=== PATIENT | male | born 1955 | race Caucasian/White ===

== ENCOUNTER 2017-07-20 09:55 | Inpatient (IN) | payer OTHER ==
[~2017-07-20] VITALS: Ht 182.9 cm; Wt 90.7 kg
[2017-07-20] MEDS ORDERED: oxyCODONE HCL 10 MG TAB.ER.12H PO ONE ×2 (10:00→10:17)
[2017-07-20] MEDS ORDERED: NACL 0.9% 1,000 ML IV ONE (10:00)
[2017-07-20] MEDS ORDERED: CEFAZOLIN 2 GM IVPB PREMIX 50 ML IV ONE (10:00)
[2017-07-20] MEDS ORDERED: ACETAMINOPHEN 500 MG TABLET PO ONE (10:00)
[2017-07-20] MEDS ORDERED: GABAPENTIN 300 MG CAPSULE PO ONE (10:00)
[2017-07-20] MEDS ORDERED: TRANEXAMIC ACID 650 MG TABLET PO ONE (10:00)
[2017-07-20] MEDS ORDERED: CELECOXIB 200 MG CAPSULE PO ONE (10:00)
[2017-07-20] MEDS ORDERED: WATER FOR IRRIGATION,STERILE 1,000 ML IRRIG.SOLN IR ONE (10:20)
[2017-07-20] MEDS ORDERED: ROPIVACAINE 40 MG/20 ML AMP EP ONE (10:20)
[2017-07-20] MEDS ORDERED: MIDAZOLAM HCL 5 MG/ML VIAL (VERSED) IV ONE (10:20)
[2017-07-20] MEDS ORDERED: PROPOFOL 200MG/ 20ML VIAL (DIPRIVAN) IV ONE (10:20)
[2017-07-20] MEDS ORDERED: ROPIVACAINE HCL/PF 5 MG/ML 0.5% 30 ML VIAL INJ ONE (10:20)
[2017-07-20] MEDS ORDERED: BUPIVACAINE /PF 0.75% 10 ML VIAL INJ ONE (10:20)
[2017-07-20] MEDS ORDERED: NS 1000 ML BAG IV ONE (10:20)
[2017-07-20] MEDS ORDERED: SEVOFLURANE 15 MIN GAS INH ONE (10:20)
[2017-07-20] MEDS ORDERED: EPINEPHrine 1 MG/ML AMP IV ONE (10:20)
[2017-07-20] MEDS ORDERED: KETOROLAC TROMETHAMINE 30 MG VIAL IVP ONE (10:20)
[2017-07-20] MEDS ORDERED: MORPHINE SULFATE 10MG/10ML PF AMP EP ONE (10:20)
[2017-07-20] MEDS ORDERED: TRANEXAMIC ACID 1,000 MG/10 ML VIAL IV ONE (10:20)
[2017-07-20] MEDS ORDERED: METOCLOPRAMIDE HCL 10 MG/2 ML VIAL IVP ONE (10:20)
[2017-07-20] MEDS ORDERED: fentaNYL CITRATE 250 MCG/5 ML AMP IV ONE (10:20)
[2017-07-20] MEDS ORDERED: POLYMYXIN 500,000/BACIT.10,000 UNITS in NS IRR 1 L IR ONE ×2 (11:05→12:00)
[2017-07-20] MEDS ORDERED: TRAM50TA92 PO (12:35)
[2017-07-20] MEDS ORDERED: AMIT10TA6 PO (12:35)
[2017-07-20] MEDS ORDERED: DONE5TAB3 PO (12:35)
[2017-07-20] MEDS ORDERED: DICL75TA5 PO (12:35)
[2017-07-20] MEDS ORDERED: BENA1TAB19 PO (12:35)
[2017-07-20] MEDS ORDERED: SSNOVOLOG SUBCUT (12:35)
[2017-07-20] MEDS ORDERED: LIP10 PO (12:35)
[2017-07-20] MEDS ORDERED: GABA800T PO (12:35)
[2017-07-20] MEDS ORDERED: OXYC-133 PO (12:35)
[2017-07-20] MEDS ORDERED: ASPI-1063 PO (12:35)
[2017-07-20] MEDS ORDERED: LR 1,000 ML IV ONE (13:12)
[2017-07-20] MEDS ORDERED: KETOROLAC TROMETHAMINE 30 MG VIAL IM PRN (13:15)
[2017-07-20] MEDS ORDERED: NALOXONE HCL 0.4 MG/ML AMP (NARCAN) IVP PRN (13:15)
[2017-07-20] MEDS ORDERED: ONDANSETRON HCL 4 MG/2 ML VIAL IVP PRN ×3 (13:15→14:15)
[2017-07-20] MEDS ORDERED: DIPHENHYDRAMINE INJ 50 MG/ML VIAL IVP PRN (13:15)
[2017-07-20] MEDS ORDERED: ePHEDrine sulfate 50 MG/ML VIAL IVP PRN (13:15)
[2017-07-20] MEDS ORDERED: NALBUPHINE HCL 10 MG/ML AMP IVP PRN (13:15)
[2017-07-20] MEDS ORDERED: fentaNYL CITRATE/PF 100 MCG/2 ML AMP IVP PRN (13:15)
[2017-07-20] MEDS ORDERED: ROPIVACAINE 0.2% 550 ML INJ SCH (14:02)
[2017-07-20] MEDS ORDERED: PROMETHAZINE HCL 25 MG/ML AMP IVP PRN (14:15)
[2017-07-20] MEDS ORDERED: DIPHENHYDRAMINE HCL 25 MG CAPSULE PO PRN (14:15)
[2017-07-20] MEDS ORDERED: KETOROLAC TROMETHAMINE 15 MG VIAL IVP PRN (14:15)
[2017-07-20 15:30] VITALS: BP_SYST 145
[2017-07-20 15:57] VITALS: BP_SYST 145
[2017-07-20 16:00] VITALS: BP_SYST 145
[2017-07-20] MEDS: GABAPENTIN 400 MG CAPSULE PO SCH ×2 (17:00→21:20)
[2017-07-20] MEDS: ACETAMINOPHEN 500 MG TABLET PO SCH ×2 (17:02→21:23)
[2017-07-20] MEDS: CEFAZOLIN 1 GM IVPB PREMIX 50 ML IV SCH (17:02)
[2017-07-20] MEDS: LR 1,000 ML IV SCH (17:10)
[2017-07-20 20:00] VITALS: BP_SYST 154
[2017-07-20] MEDS ORDERED: SENNOSIDES 8.6 MG TABLET PO PRN (21:00)
[2017-07-20] MEDS: DONEPEZIL HCL 5 MG TABLET (ARICEPT) PO SCH (21:20)
[2017-07-20] MEDS: GABAPENTIN 300 MG CAPSULE PO SCH (21:20)
[2017-07-20] MEDS: CELECOXIB 200 MG CAPSULE PO SCH (21:21)
[2017-07-20] MEDS: AMITRIPTYLINE HCL 10 MG TABLET (ELAVIL) PO SCH (21:21)
[2017-07-21 00:36] VITALS: BP_SYST 128
[2017-07-21] MEDS: CEFAZOLIN 1 GM IVPB PREMIX 50 ML IV SCH ×2 (01:16→09:22)
[2017-07-21] MEDS: LR 1,000 ML IV SCH ×3 (04:25→20:02)
[2017-07-21 05:19] LABS: BASOPHILS % (AUTO) 0.3 % (0.0-2.0); EOSINOPHILS # (AUTO) 0.1 K/uL (0.0-0.4); EOSINOPHILS % (AUTO) 1.2 % (0.0-4.0); HEMATOCRIT 29.2 % (36-54); HEMOGLOBIN 9.5 g/dL (14.0-18.0); LYMPHOCYTES % (AUTO) 10.1 % (20.5-51.5); MEAN CORPUSCULAR HEMOGLOBIN 29 pg (27-31); MEAN CORPUSCULAR HGB CONC 33 % (32-36); MEAN CORPUSCULAR VOLUME 88 fL (79.0-98.0); MONOCYTES # (AUTO) 0.8 K/uL (0.0-1.0); MONOCYTES % (AUTO) 8.2 % (1.7-9.3); NEUTROPHILS % (AUTO) 80.2 % (40.0-70.0); PLATELET COUNT (AUTO) 313 K/uL (130-430); RED CELL DISTRIBUTION WIDTH 12.5 % (9.0-15.0); WHITE BLOOD COUNT (AUTO) 9.9 K/uL (4.8-10.8)
[2017-07-21 05:22] LABS: CALCIUM 7.8 mg/dL (8.4-11.0); CREATININE 0.99 mg/dL (0.55-1.30); POTASSIUM 3.9 mmol/L (3.5-5.1)
[2017-07-21] MEDS: oxyCODONE HCL 5 MG TABLET PO PRN ×2 (08:19→13:30)
[2017-07-21] MEDS: GABAPENTIN 400 MG CAPSULE PO SCH ×3 (09:22→21:54)
[2017-07-21] MEDS: CELECOXIB 200 MG CAPSULE PO SCH ×2 (09:22→21:53)
[2017-07-21] MEDS: RIVAROXABAN 10 MG TABLET PO SCH (09:23)
[2017-07-21] MEDS: ATORVASTATIN 10 MG TABLET PO SCH (09:23)
[2017-07-21 09:48] VITALS: BP_SYST 146
[2017-07-21 11:46] VITALS: BP_SYST 160
[2017-07-21] MEDS: ACETAMINOPHEN 500 MG TABLET PO SCH ×3 (14:30→21:55)
[2017-07-21 16:32] VITALS: BP_SYST 162
[2017-07-21] MEDS: MORPHINE SULFATE 10 MG/ML VIAL IVP PRN ×2 (16:54→21:54)
[2017-07-21 20:00] VITALS: BP_SYST 148
[2017-07-21] MEDS: GABAPENTIN 300 MG CAPSULE PO SCH (21:52)
[2017-07-21] MEDS: DONEPEZIL HCL 5 MG TABLET (ARICEPT) PO SCH (21:52)
[2017-07-21] MEDS: AMITRIPTYLINE HCL 10 MG TABLET (ELAVIL) PO SCH (21:53)
[2017-07-22 00:16] VITALS: BP_SYST 157
[2017-07-22] MEDS ORDERED: COMMUNICATION ORDER XX ONE (00:30)
[2017-07-22] MEDS ORDERED: ONDANSETRON HCL 4 MG/2 ML VIAL IVP PRN (00:30)
[2017-07-22] MEDS: MORPHINE SULFATE 10 MG/ML VIAL IVP PRN (03:07)
[2017-07-22] MEDS: oxyCODONE HCL 5 MG TABLET PO PRN ×3 (05:46→13:40)
[2017-07-22] MEDS: LR 1,000 ML IV SCH (06:02)
[2017-07-22 06:50] LABS: BASOPHILS % (AUTO) 0.1 % (0.0-2.0); EOSINOPHILS % (AUTO) 0.2 % (0.0-4.0); HEMATOCRIT 28.9 % (36-54); HEMOGLOBIN 9.7 g/dL (14.0-18.0); LYMPHOCYTES # (AUTO) 0.7 K/uL (1.0-5.5); LYMPHOCYTES % (AUTO) 6.7 % (20.5-51.5); MEAN CORPUSCULAR HEMOGLOBIN 29 pg (27-31); MEAN CORPUSCULAR HGB CONC 33 % (32-36); MEAN CORPUSCULAR VOLUME 88 fL (79.0-98.0); MONOCYTES # (AUTO) 1.1 K/uL (0.0-1.0); NEUTROPHILS # (AUTO) 9.2 K/uL (1.8-7.7); PLATELET COUNT (AUTO) 304 K/uL (130-430); RED CELL DISTRIBUTION WIDTH 12.4 % (9.0-15.0)
[2017-07-22 07:22] LABS: CALCIUM 8.8 mg/dL (8.4-11.0); CREATININE 0.99 mg/dL (0.55-1.30); POTASSIUM 4.7 mmol/L (3.5-5.1)
[2017-07-22] MEDS ORDERED: LR 500 ML IV ONE (08:00)
[2017-07-22 08:06] VITALS: BP_SYST 148
[2017-07-22] MEDS: CELECOXIB 200 MG CAPSULE PO SCH (08:27)
[2017-07-22] MEDS: ACETAMINOPHEN 500 MG TABLET PO SCH ×2 (08:27→15:00)
[2017-07-22] MEDS: GABAPENTIN 400 MG CAPSULE PO SCH ×2 (08:27→15:00)
[2017-07-22] MEDS: ATORVASTATIN 10 MG TABLET PO SCH (08:27)
[2017-07-22] MEDS: RIVAROXABAN 10 MG TABLET PO SCH (09:29)
[2017-07-22 11:20] VITALS: BP_SYST 152
[2017-07-22 12:00] VITALS: BP_SYST 159
[2017-07-22] MEDS ORDERED: RIVA10TA (12:41)
[2017-07-22] MEDS ORDERED: HYDR-3924 PO (12:43)
== END 2017-07-22 15:10 | disposition home health service (06) | DRG 470 ==
LOC: SMU 09:55 → STU 16:36
PROVIDERS: ADMIT Orthopaedic Surgery; ATTEND Orthopaedic Surgery
PROC: 0SRC0J9 Replacement of Right Knee Joint with Synthetic Substitute, Cemented, Open Approach (ICD-10-PCS; principal; 2017-07-20 12:00)
DX: M17.11 Unilateral primary osteoarthritis, right knee (principal); E10.42 Type 1 diabetes mellitus with diabetic polyneuropathy; I10 Essential (primary) hypertension; F32.9 Major depressive disorder, single episode, unspecified; G89.29 Other chronic pain; M25.761 Osteophyte, right knee; M54.5 Low back pain; Z96.41 Presence of insulin pump (external) (internal); Z88.1 Allergy status to other antibiotic agents; Z79.4 Long term (current) use of insulin; Z79.899 Other long term (current) drug therapy; Z87.891 Personal history of nicotine dependence
CPT/HCPCS: 36415; 80048; 85025; 87081; 88305; 88311; 94760; 97039; 97110-GP; 97116-GP; 97530-GP; C1713; C1776; J0171; J0690; J1885; J2250; J2270; J2274; J2405; J2704; J2765; J2795; J3010; J3490; J7030; J7120; Q0163

== ENCOUNTER 2017-11-29 07:08 | Day surgery (SDC) | payer OTHER ==
[~2017-11-29] VITALS: Ht 182.9 cm; Wt 90.7 kg
[~2017-11-29 07:08] MED LIST: AMIT10TA6 PO; BENA1TAB19 PO; DONE5TAB3 PO; GABA800T PO; HYDR-3924 PO; LIP10 PO; RIVA10TA; SSNOVOLOG SUBCUT
[2017-11-29] MEDS ORDERED: CEFAZOLIN SOD 2 GM in D5W 50 ML IV ONE (07:45)
[2017-11-29] MEDS ORDERED: MIDAZOLAM HCL 5 MG/5 ML VIAL IVP ONE (09:35)
[2017-11-29] MEDS ORDERED: NS 1000 ML IV.SOLN IV ONE (09:35)
[2017-11-29] MEDS ORDERED: BUPIVACAINE LIPOSOME/PF 266 MG/20 ML VIAL INFIL ONE (09:35)
[2017-11-29] MEDS ORDERED: BUPIVACAINE /PF 0.25% 30 ML VIAL INJ ONE (09:35)
[2017-11-29] MEDS ORDERED: BUPIVACAINE /PF 0.75% 10 ML VIAL INJ ONE (09:35)
[2017-11-29] MEDS ORDERED: LR 1,000 ML IV.SOLN IV ONE (09:35)
[2017-11-29] MEDS ORDERED: PROPOFOL 200MG/ 20ML VIAL (DIPRIVAN) IV ONE (09:35)
[2017-11-29] MEDS ORDERED: POLYMYXIN 500,000/BACIT.10,000 UNITS in NS IRR 1 L IR ONE (09:39)
[2017-11-29] MEDS ORDERED: ONDANSETRON HCL 4 MG/2 ML VIAL IVP PRN (10:45)
[2017-11-29] MEDS ORDERED: fentaNYL CITRATE/PF 100 MCG/2 ML AMP IVP PRN ×2 (10:45)
[2017-11-29] MEDS ORDERED: NACL 0.9% 1,000 ML IV SCH (10:46)
[2017-11-29] MEDS ORDERED: DIPHENHYDRAMINE HCL 25 MG CAPSULE PO PRN (11:00)
[2017-11-29] MEDS ORDERED: HYDROcodone/ACETAMIN 5-325 MG TAB (NORCO/ VICODIN) PO PRN (11:00)
[2017-11-29] MEDS ORDERED: MORPHINE 4 MG/ML INJ. SYRINGE IVP PRN (11:00)
[2017-11-29] MEDS ORDERED: ACETAMINOPHEN 325 MG TABLET PO PRN (11:00)
[2017-11-29 15:54] VITALS: BP_SYST 143
== END 2017-11-29 14:30 | disposition home or self-care (01) ==
LOC: SDS 07:08 → SMU 07:08 → SDS 14:30
PROVIDERS: ATTEND Orthopaedic Surgery
DX: S76.111A Strain of right quadriceps muscle, fascia and tendon, initial encounter (principal); X58.XXXA Exposure to other specified factors, initial encounter; Y93.9 Activity, unspecified; Y92.89 Other specified places as the place of occurrence of the external cause; Y99.9 Unspecified external cause status; Z88.8 Allergy status to other drugs, medicaments and biological substances; Z79.899 Other long term (current) drug therapy; Z87.891 Personal history of nicotine dependence; E11.22 Type 2 diabetes mellitus with diabetic chronic kidney disease; N18.9 Chronic kidney disease, unspecified; Z79.4 Long term (current) use of insulin; M19.90 Unspecified osteoarthritis, unspecified site; I12.9 Hypertensive chronic kidney disease with stage 1 through stage 4 chronic kidney disease, or unspecified chronic kidney disease
CPT/HCPCS: 27385; C9290; J0690; J2250; J2704; J3490 ×2; J7030; J7060; J7120

== ENCOUNTER 2023-01-19 08:15 | Day surgery (SDC) | payer OTHER ==
[~2023-01-19] VITALS: Ht 182.9 cm; Wt 94.1 kg
[~2023-01-19 08:15] MED LIST changes: +BUPIVACAINE /PF 0.25% 30 ML VIAL INJ ONE; +DESFLURANE 15 MIN GAS INH ONE; +DEXAMETHASONE SOD PHOSPHATE 4 MG/ML VIAL ONE; -HYDR-3924 PO; +HYDR-4497 PO; +KETOROLAC TROMETHAMINE 30 MG VIAL ONE; +LR 1,000 ML IV.SOLN IV ONE; +MIDAZOLAM HCL 2 MG/2 ML VIAL (VERSED) ONE; +NS IRRIG SOLN 1000 ML IR ONE; +ONDANSETRON HCL 4 MG/2 ML VIAL ONE; +PROPOFOL 200MG/ 20ML VIAL (DIPRIVAN) IV ONE; +ROCURONIUM BROMIDE 10 MG/ML (ZEMURON) ONE; +SUGAMMADEX SODIUM 200 MG/2 ML VIAL IV ONE; +TRANEXAMIC ACID 1,000 MG/10 ML VIAL ONE; +VANCOMYCIN HCL 1000 MG/VIAL IV ONE; +WATER FOR IRRIGATION,STERILE 1,000 ML IRRIG.SOLN IR ONE
[2023-01-19 09:44] VITALS: O2SAT 100
[2023-01-19] MEDS ORDERED: LR 1,000 ML IV.SOLN IV ONE (09:58)
[2023-01-19] MEDS ORDERED: fentaNYL CITRATE/PF 100 MCG/2 ML AMP ONE (09:58)
[2023-01-19] MEDS ORDERED: WATER FOR INJECTION,STERILE 20 ML VIAL IV ONE (09:58)
[2023-01-19] MEDS ORDERED: MIDAZOLAM HCL/PF 2 MG/2 ML SYRINGE ONE (09:58)
[2023-01-19] MEDS ORDERED: BUPIVACAINE /PF 0.25% 30 ML VIAL INJ ONE (09:58)
[2023-01-19] MEDS ORDERED: LIDOCAINE 1% 10 MG/ML, 20 ML MDV ONE (09:58)
[2023-01-19] MEDS ORDERED: NS IRRIG SOLN 1000 ML IR ONE (09:58)
[2023-01-19] MEDS ORDERED: SUGAMMADEX SODIUM 200 MG/2 ML VIAL IV ONE (09:58)
[2023-01-19] MEDS ORDERED: TRANEXAMIC ACID 1,000 MG/10 ML VIAL ONE (09:58)
[2023-01-19] MEDS ORDERED: PROPOFOL 200MG/ 20ML VIAL (DIPRIVAN) IV ONE (09:58)
[2023-01-19] MEDS ORDERED: NS 1000 ML IV.SOLN IV ONE ×2 (09:58)
[2023-01-19] MEDS ORDERED: LR 1,000 ML IV SCH (10:30)
[2023-01-19] MEDS ORDERED: HYDROmorphone 1 MG/ML INJ. CARTRIDGE IVP PRN (10:30)
[2023-01-19 13:17] VITALS: BP_SYST 153; PULSE 51; RESP 18
== END 2023-01-19 12:50 | disposition home or self-care (01) ==
LOC: SDS 08:15 → SMU 08:16 → SDS 12:50
PROVIDERS: ATTEND Podiatrist Primary Podiatric Medicine
DX: E10.621 Type 1 diabetes mellitus with foot ulcer (principal); L89.893 Pressure ulcer of other site, stage 3; I12.9 Hypertensive chronic kidney disease with stage 1 through stage 4 chronic kidney disease, or unspecified chronic kidney disease; E10.22 Type 1 diabetes mellitus with diabetic chronic kidney disease; E10.21 Type 1 diabetes mellitus with diabetic nephropathy; N18.2 Chronic kidney disease, stage 2 (mild); M19.90 Unspecified osteoarthritis, unspecified site; E78.5 Hyperlipidemia, unspecified; Z79.84 Long term (current) use of oral hypoglycemic drugs; Z79.899 Other long term (current) drug therapy; Z88.1 Allergy status to other antibiotic agents
CPT/HCPCS: 15275; 88304; J3490 ×6; J1100; J1885; J3465 ×2; J2405; J2704 ×2; J3370; J7120 ×2; J2001; J3010; J7030; A2004

== ENCOUNTER 2023-02-11 08:00 | Outpatient (CLI) | payer OTHER ==
[~2023-02-11 08:00] MED LIST changes: -BUPIVACAINE /PF 0.25% 30 ML VIAL INJ ONE; -DESFLURANE 15 MIN GAS INH ONE; -DEXAMETHASONE SOD PHOSPHATE 4 MG/ML VIAL ONE; -KETOROLAC TROMETHAMINE 30 MG VIAL ONE; -LR 1,000 ML IV.SOLN IV ONE; -MIDAZOLAM HCL 2 MG/2 ML VIAL (VERSED) ONE; -NS IRRIG SOLN 1000 ML IR ONE; -ONDANSETRON HCL 4 MG/2 ML VIAL ONE; -PROPOFOL 200MG/ 20ML VIAL (DIPRIVAN) IV ONE; -ROCURONIUM BROMIDE 10 MG/ML (ZEMURON) ONE; -SUGAMMADEX SODIUM 200 MG/2 ML VIAL IV ONE; -TRANEXAMIC ACID 1,000 MG/10 ML VIAL ONE; -VANCOMYCIN HCL 1000 MG/VIAL IV ONE; -WATER FOR IRRIGATION,STERILE 1,000 ML IRRIG.SOLN IR ONE
== END 2023-02-11 16:00 | disposition home or self-care (01) ==
LOC: SLB 08:00 → EDSTATUS 02-18 09:30
PROVIDERS: ATTEND Podiatrist Primary Podiatric Medicine
DX: Z01.818 Encounter for other preprocedural examination (principal); E11.621 Type 2 diabetes mellitus with foot ulcer; L89.893 Pressure ulcer of other site, stage 3
CPT/HCPCS: 87081

== ENCOUNTER 2023-03-08 15:10 | Inpatient (IN) | payer OTHER ==
[~2023-03-08] VITALS: Ht 182.9 cm; Wt 90.7 kg
[2023-03-08 15:19] VITALS: BP_SYST 126; PULSE 79; RESP 18; TEMP 98.3; O2SAT 97
[2023-03-08] MEDS ORDERED: NACL 0.9% 1,000 ML IV ONE ×3 (15:30→17:00)
[2023-03-08 16:05] LABS: BASOPHILS # (AUTO) 0.1 K/uL (0.0-0.2); BASOPHILS % (AUTO) 1.3 % (0.0-2.0); EOSINOPHILS # (AUTO) 0.4 K/uL (0.0-0.4); EOSINOPHILS % (AUTO) 4.6 % (0.0-4.0); HEMATOCRIT 28.7 % (36-54); HEMOGLOBIN 9.3 g/dL (14.0-18.0); LYMPHOCYTES % (AUTO) 11.7 % (20.5-51.5); MEAN CORPUSCULAR HEMOGLOBIN 27 pg (27-31); MEAN CORPUSCULAR HGB CONC 33 % (32-36); MEAN CORPUSCULAR VOLUME 84 fL (79.0-98.0); MONOCYTES # (AUTO) 0.9 K/uL (0.0-1.0); MONOCYTES % (AUTO) 10.6 % (1.7-9.3); NEUTROPHILS % (AUTO) 71.8 % (40.0-70.0); PLATELET COUNT (AUTO) 286 K/uL (130-430); RED BLOOD CELL COUNT(AUTO) 3.41 MIL/uL (4.2-6.2); RED CELL DISTRIBUTION WIDTH 16.6 % (9.0-15.0); WHITE BLOOD COUNT (AUTO) 8.4 K/uL (4.8-10.8)
[2023-03-08 16:22] LABS: ACETONE, SERUM NEGATIVE (NEGATIVE)
[2023-03-08 16:23] LABS: INR 1.1 (0.80-1.20); PROTHROMBIN TIME 11.3 SECS (9.5-12.5)
[2023-03-08 16:24] LABS: ALANINE AMINOTRANSFERASE 17 U/L (12-78); ALBUMIN 2.8 g/dL (3.4-4.8); ANION GAP 15 (5-15); ASPARTATE AMINOTRANSFERASE 18 U/L (10-37); CARBON DIOXIDE 18 mmol/L (23-29); CHLORIDE 95 mmol/L (98-107); CREATININE 6.21 mg/dL (0.55-1.30); GFR AFRICAN AMERICAN 12 mL/min (>90); POTASSIUM 5.5 mmol/L (3.5-5.1); SODIUM SERUM 128 mmol/L (136-145); TOTAL BILIRUBIN 0.4 mg/dL (0.0-1.0); UREA NITROGEN, BLOOD 67 mg/dL (8-21)
[2023-03-08 16:28] LABS: GLUCOSE 459 mg/dL (74-106)
[2023-03-08] MEDS ORDERED: INSULIN REGULAR, HUMAN 100 UNITS/ML, 3 ML VIAL IV ONE (16:45)
[2023-03-08] MEDS ORDERED: CLINDAMYCIN 900 mg/50mL D5W 50 ML IV ONE (17:00)
[2023-03-08] MEDS ORDERED: CIPROFLOXACIN LACT 400 MG/D5W 200 ML IV SCH (17:00)
[2023-03-08] MEDS ORDERED: INSULIN REGULAR, HUMAN 10 UNITS/0.1 ML, 3 ML VIAL ONE (17:01)
[2023-03-08] MEDS ORDERED: INSULIN REGULAR, HUMAN 100 UNITS in NS 99 ML IV ONE ×2 (17:15)
[2023-03-08] MEDS ORDERED: CIPROFLOXACIN LACT 400 MG/D5W 200 ML IV ONE (18:00)
[2023-03-08] MEDS ORDERED: CLINDAMYCIN 300 MG/50 ML D5W 50 ML IV SCH (19:00)
[2023-03-08] MEDS ORDERED: LORazepam 2 MG/ML VIAL IVP PRN (20:15)
[2023-03-08] MEDS ORDERED: NALOXONE HCL 0.4 MG/ML AMP (NARCAN) IVP PRN ×2 (20:15)
[2023-03-08] MEDS ORDERED: ONDANSETRON HCL 4 MG/2 ML VIAL IVP PRN (20:15)
[2023-03-08] MEDS ORDERED: ACETAMINOPHEN 325 MG TABLET PO PRN (20:30)
[2023-03-08 21:00] VITALS: BP_SYST 139; PULSE 74; RESP 20; TEMP 98.6; O2SAT 95
[2023-03-08] MEDS: AMITRIPTYLINE HCL 10 MG TABLET (ELAVIL) PO SCH (21:00)
[2023-03-08] MEDS: GABAPENTIN 400 MG CAPSULE PO SCH (21:00)
[2023-03-08] MEDS: ATORVASTATIN 10 MG TABLET PO SCH (21:00)
[2023-03-08] MEDS: DONEPEZIL HCL 5 MG TABLET (ARICEPT) PO SCH (21:00)
[2023-03-08] MEDS ORDERED: DEXTROSE 50% JECT 50 ML DISP.SYRIN IVP PRN (21:15)
[2023-03-08] MEDS ORDERED: INSULIN REGULAR, HUMAN 100 UNITS in NS 99 ML IV PRN ×2 (21:15)
[2023-03-08] MEDS: NACL 0.9% 1,000 ML IV SCH (21:44)
[2023-03-08 22:00] VITALS: BP_SYST 143; PULSE 72; RESP 22; O2SAT 96
[2023-03-08 22:25] VITALS: BP_SYST 140; RESP 22; TEMP 99.6
[2023-03-08 23:00] VITALS: BP_SYST 140; PULSE 74; RESP 20; O2SAT 95
[2023-03-09] VITALS (23 sets, daily range): BP systolic 114–169; PULSE 63–93; RESP 12–22; TEMP 97.8–98.6; O2SAT 96–98
[2023-03-09 00:43] LABS: CALCIUM 7.5 mg/dL (8.4-11.0); CREATININE 5.82 mg/dL (0.55-1.30); POTASSIUM 5.3 mmol/L (3.5-5.1)
[2023-03-09] MEDS: NACL 0.9% 1,000 ML IV SCH ×2 (03:18→13:18)
[2023-03-09 05:45] LABS: BILIRUBIN,URINE NEGATIVE (NEGATIVE); CLARITY/URINE Clear (CLEAR); COLOR,URINE YELLOW (YELLOW); GLUCOSE,URINE 1+ (NEGATIVE); KETONES,URINE NEGATIVE (NEGATIVE); LEUKOCYTE ESTERASE ,URINE NEGATIVE (NEGATIVE); NITRITE, URINE NEGATIVE (NEGATIVE); PH,URINE 6.5 (5.0-8.0); PROTEIN URINE 2+ (NEGATIVE); UROBILINOGEN,URINE 0.2 (0.2-1.0)
[2023-03-09 05:54] LABS: BLOOD, URINE TRACE (NEGATIVE)
[2023-03-09 05:55] LABS: BACTERIA,URINE None Seen /HPF (None Seen); WBC,URINE 0-3 /HPF (0-3)
[2023-03-09] MEDS ORDERED: CIPROFLOXACIN LACT 400 MG/D5W 200 ML IV SCH (06:00)
[2023-03-09 06:56] LABS: CALCIUM 7.5 mg/dL (8.4-11.0); CREATININE 5.91 mg/dL (0.55-1.30); PHOSPHORUS 6.7 mg/dL (2.7-4.5); POTASSIUM 5.4 mmol/L (3.5-5.1)
[2023-03-09 07:29] LABS: BASOPHILS # (AUTO) 0.1 K/uL (0.0-0.2); BASOPHILS % (AUTO) 1.2 % (0.0-2.0); EOSINOPHILS % (AUTO) 8.9 % (0.0-4.0); HEMATOCRIT 28.1 % (36-54); HEMOGLOBIN 9.1 g/dL (14.0-18.0); LYMPHOCYTES # (AUTO) 1.3 K/uL (1.0-5.5); LYMPHOCYTES % (AUTO) 12.4 % (20.5-51.5); MEAN CORPUSCULAR HEMOGLOBIN 27 pg (27-31); MEAN CORPUSCULAR HGB CONC 33 % (32-36); MEAN CORPUSCULAR VOLUME 83 fL (79.0-98.0); MONOCYTES # (AUTO) 1.1 K/uL (0.0-1.0); MONOCYTES % (AUTO) 10.3 % (1.7-9.3); NEUTROPHILS # (AUTO) 7.3 K/uL (1.8-7.7); NEUTROPHILS % (AUTO) 67.2 % (40.0-70.0); PLATELET COUNT (AUTO) 277 K/uL (130-430); RED BLOOD CELL COUNT(AUTO) 3.37 MIL/uL (4.2-6.2); RED CELL DISTRIBUTION WIDTH 16.3 % (9.0-15.0); WHITE BLOOD COUNT (AUTO) 10.8 K/uL (4.8-10.8)
[2023-03-09] MEDS: RIVAROXABAN 10 MG TABLET PO SCH (09:00)
[2023-03-09] MEDS ORDERED: lisinopriL 20 MG TABLET PO SCH (09:00)
[2023-03-09] MEDS: HYDROCHLOROTHIAZIDE 25 MG TABLET (HCTZ) PO SCH (09:00)
[2023-03-09] MEDS ORDERED: BENAZEPRIL HCL 20 MG TABLET (LOTENSIN) PO SCH (09:00)
[2023-03-09] MEDS: GABAPENTIN 400 MG CAPSULE PO SCH ×3 (09:00→20:01)
[2023-03-09] MEDS ORDERED: INSULIN GLARGINE 100 UNITS/ML, 10 ML VIAL SUBCUT ONE (10:45)
[2023-03-09] MEDS: CIPROFLOXACIN LACT 400 MG/D5W 200 ML IV SCH ×2 (11:34→22:31)
[2023-03-09 13:13] LABS: CALCIUM 7.4 mg/dL (8.4-11.0); CREATININE 6.19 mg/dL (0.55-1.30); POTASSIUM 5.3 mmol/L (3.5-5.1)
[2023-03-09 16:46] LABS: CALCIUM 7.3 mg/dL (8.4-11.0); CREATININE 6.26 mg/dL (0.55-1.30); PHOSPHORUS 6.9 mg/dL (2.7-4.5); POTASSIUM 5.3 mmol/L (3.5-5.1)
[2023-03-09] MEDS: INSULIN LISPRO SLIDING SCALE 100 UNITS/ML, 3 ML VIAL (humaLOG) SUBCUT PRN (17:50)
[2023-03-09 18:21] LABS: BILIRUBIN,URINE NEGATIVE (NEGATIVE); BLOOD, URINE 1+ (NEGATIVE); CLARITY/URINE Clear (CLEAR); GLUCOSE,URINE Trace (NEGATIVE); KETONES,URINE NEGATIVE (NEGATIVE); LEUKOCYTE ESTERASE ,URINE NEGATIVE (NEGATIVE); NITRITE, URINE NEGATIVE (NEGATIVE); PH,URINE 5.5 (5.0-8.0); PROTEIN URINE 2+ (NEGATIVE); UROBILINOGEN,URINE 0.2 (0.2-1.0)
[2023-03-09 18:22] LABS: COLOR,URINE STRAW (YELLOW)
[2023-03-09 18:28] LABS: BACTERIA,URINE FEW /HPF (None Seen); COARSE GRANULAR CASTS,URINE 0-10 /LPF (None Seen); MUCUS,URINE None Seen /LPF (None Seen); URINE AMORPHOUS URATE 1+ /HPF (None Seen)
[2023-03-09] MEDS: AMITRIPTYLINE HCL 10 MG TABLET (ELAVIL) PO SCH (20:02)
[2023-03-09] MEDS: DONEPEZIL HCL 5 MG TABLET (ARICEPT) PO SCH (20:02)
[2023-03-09] MEDS: ATORVASTATIN 10 MG TABLET PO SCH (20:02)
[2023-03-09] MEDS: INSULIN GLARGINE 100 UNITS/ML, 10 ML VIAL SUBCUT SCH (20:14)
[2023-03-10] VITALS (17 sets, daily range): BP systolic 115–167; PULSE 60–85; RESP 12–20; TEMP 97.9–98.6; O2SAT 95–97
[2023-03-10] MEDS: INSULIN LISPRO SLIDING SCALE 100 UNITS/ML, 3 ML VIAL (humaLOG) SUBCUT PRN ×3 (00:14→21:27)
[2023-03-10 01:30] LABS: CALCIUM 7.4 mg/dL (8.4-11.0); CREATININE 5.99 mg/dL (0.55-1.30); POTASSIUM 4.7 mmol/L (3.5-5.1)
[2023-03-10] MEDS: NACL 0.9% 1,000 ML IV SCH ×3 (02:06→21:11)
[2023-03-10 06:01] LABS: ERYTHROCYTE SEDIMENTATION RATE 19 MM/HR (0-15)
[2023-03-10 06:14] LABS: BASOPHILS # (AUTO) 0.2 K/uL (0.0-0.2); BASOPHILS % (AUTO) 1.9 % (0.0-2.0); EOSINOPHILS # (AUTO) 0.9 K/uL (0.0-0.4); EOSINOPHILS % (AUTO) 10.6 % (0.0-4.0); HEMATOCRIT 28.4 % (36-54); HEMOGLOBIN 9.3 g/dL (14.0-18.0); LYMPHOCYTES # (AUTO) 1.3 K/uL (1.0-5.5); LYMPHOCYTES % (AUTO) 15.3 % (20.5-51.5); MEAN CORPUSCULAR HEMOGLOBIN 27 pg (27-31); MEAN CORPUSCULAR HGB CONC 33 % (32-36); MEAN CORPUSCULAR VOLUME 83 fL (79.0-98.0); MONOCYTES % (AUTO) 11.8 % (1.7-9.3); NEUTROPHILS # (AUTO) 5.2 K/uL (1.8-7.7); NEUTROPHILS % (AUTO) 60.4 % (40.0-70.0); PLATELET COUNT (AUTO) 276 K/uL (130-430); RED BLOOD CELL COUNT(AUTO) 3.45 MIL/uL (4.2-6.2); RED CELL DISTRIBUTION WIDTH 16.4 % (9.0-15.0); WHITE BLOOD COUNT (AUTO) 8.7 K/uL (4.8-10.8)
[2023-03-10 06:55] LABS: ALBUMIN 2.3 g/dL (3.4-4.8); CALCIUM 7.4 mg/dL (8.4-11.0); CREATININE 6.04 mg/dL (0.55-1.30); PHOSPHORUS 6.5 mg/dL (2.7-4.5); POTASSIUM 4.4 mmol/L (3.5-5.1); THYROID STIMULATING HORMONE 4.95 uIu/mL (0.34-4.82); TOTAL BILIRUBIN 0.3 mg/dL (0.0-1.0); TOTAL PROTEIN, SERUM 6.2 g/dL (6.4-8.3)
[2023-03-10] MEDS: RIVAROXABAN 10 MG TABLET PO SCH (08:54)
[2023-03-10] MEDS: HYDROCHLOROTHIAZIDE 25 MG TABLET (HCTZ) PO SCH (08:55)
[2023-03-10] MEDS: INSULIN GLARGINE 100 UNITS/ML, 10 ML VIAL SUBCUT SCH ×2 (08:58→21:25)
[2023-03-10] MEDS: GABAPENTIN 400 MG CAPSULE PO SCH ×3 (10:14→21:11)
[2023-03-10] MEDS: CIPROFLOXACIN LACT 400 MG/D5W 200 ML IV SCH (11:33)
[2023-03-10 13:32] LABS: CALCIUM 7.6 mg/dL (8.4-11.0); CREATININE 5.82 mg/dL (0.55-1.30); POTASSIUM 4.8 mmol/L (3.5-5.1)
[2023-03-10] MEDS ORDERED: LOSA1TAB43 PO (16:56)
[2023-03-10] MEDS ORDERED: CARV25TA55 PO (16:56)
[2023-03-10] MEDS ORDERED: NOR10 PO (16:56)
[2023-03-10] MEDS ORDERED: FER300L PO (16:56)
[2023-03-10 18:22] LABS: CALCIUM 7.5 mg/dL (8.4-11.0); CREATININE 5.58 mg/dL (0.55-1.30); POTASSIUM 4.7 mmol/L (3.5-5.1)
[2023-03-10] MEDS: ATORVASTATIN 10 MG TABLET PO SCH (21:11)
[2023-03-10] MEDS: AMITRIPTYLINE HCL 10 MG TABLET (ELAVIL) PO SCH (21:15)
[2023-03-10] MEDS: DONEPEZIL HCL 5 MG TABLET (ARICEPT) PO SCH (21:15)
[2023-03-11] MEDS: CIPROFLOXACIN LACT 400 MG/D5W 200 ML IV SCH ×3 (00:06→23:25)
[2023-03-11 00:56] VITALS: BP_SYST 150; PULSE 75; RESP 18; TEMP 98.8; O2SAT 97
[2023-03-11] MEDS: NACL 0.9% 1,000 ML IV SCH ×3 (06:21→22:29)
[2023-03-11 07:37] LABS: CALCIUM 7.4 mg/dL (8.4-11.0); CREATININE 5.34 mg/dL (0.55-1.30); PHOSPHORUS 6.6 mg/dL (2.7-4.5); POTASSIUM 4.1 mmol/L (3.5-5.1)
[2023-03-11 07:39] LABS: BASOPHILS # (AUTO) 0.2 K/uL (0.0-0.2); BASOPHILS % (AUTO) 2.3 % (0.0-2.0); EOSINOPHILS # (AUTO) 0.8 K/uL (0.0-0.4); HEMATOCRIT 26.3 % (36-54); HEMOGLOBIN 8.6 g/dL (14.0-18.0); LYMPHOCYTES # (AUTO) 1.4 K/uL (1.0-5.5); LYMPHOCYTES % (AUTO) 19.3 % (20.5-51.5); MEAN CORPUSCULAR HEMOGLOBIN 27 pg (27-31); MEAN CORPUSCULAR HGB CONC 33 % (32-36); MEAN CORPUSCULAR VOLUME 82 fL (79.0-98.0); MONOCYTES # (AUTO) 0.8 K/uL (0.0-1.0); MONOCYTES % (AUTO) 11.3 % (1.7-9.3); NEUTROPHILS # (AUTO) 4.1 K/uL (1.8-7.7); NEUTROPHILS % (AUTO) 56.1 % (40.0-70.0); PLATELET COUNT (AUTO) 288 K/uL (130-430); RED BLOOD CELL COUNT(AUTO) 3.19 MIL/uL (4.2-6.2); RED CELL DISTRIBUTION WIDTH 16.5 % (9.0-15.0); WHITE BLOOD COUNT (AUTO) 7.4 K/uL (4.8-10.8)
[2023-03-11 08:00] VITALS: BP_SYST 162; PULSE 69; RESP 18; TEMP 98.2; O2SAT 100
[2023-03-11 08:37] LABS: ERYTHROCYTE SEDIMENTATION RATE 29 MM/HR (0-15)
[2023-03-11] MEDS: GABAPENTIN 400 MG CAPSULE PO SCH ×3 (08:45→20:16)
[2023-03-11] MEDS: HYDROCHLOROTHIAZIDE 25 MG TABLET (HCTZ) PO SCH (08:46)
[2023-03-11] MEDS: RIVAROXABAN 10 MG TABLET PO SCH (08:48)
[2023-03-11] MEDS: INSULIN GLARGINE 100 UNITS/ML, 10 ML VIAL SUBCUT SCH ×2 (08:48→20:22)
[2023-03-11] MEDS: INSULIN LISPRO SLIDING SCALE 100 UNITS/ML, 3 ML VIAL (humaLOG) SUBCUT PRN ×2 (11:11→16:15)
[2023-03-11 13:01] VITALS: BP_SYST 151; PULSE 78; RESP 17; TEMP 98.2; O2SAT 97
[2023-03-11] MEDS: HYDROcodone/ACETAMIN 5-325 MG TAB (NORCO/ VICODIN) PO PRN (14:06)
[2023-03-11] MEDS: cloNIDine HCL 0.2 MG TABLET PO PRN (16:07)
[2023-03-11] MEDS: ALBUMIN HUMAN 25% 100 ML IV SCH ×2 (16:50→22:28)
[2023-03-11 17:07] VITALS: BP_SYST 176; PULSE 85; RESP 15; TEMP 98.2; O2SAT 98
[2023-03-11] MEDS: ATORVASTATIN 10 MG TABLET PO SCH (20:16)
[2023-03-11] MEDS: AMITRIPTYLINE HCL 10 MG TABLET (ELAVIL) PO SCH (20:16)
[2023-03-11] MEDS: DONEPEZIL HCL 5 MG TABLET (ARICEPT) PO SCH (20:16)
[2023-03-12 00:59] VITALS: BP_SYST 157; PULSE 63; RESP 18; TEMP 96.5; O2SAT 99
[2023-03-12] MEDS: HYDROcodone/ACETAMIN 10-325 MG TAB PO PRN ×3 (02:10→17:08)
[2023-03-12] MEDS: ALBUMIN HUMAN 25% 100 ML IV SCH (04:34)
[2023-03-12 06:42] LABS: BASOPHILS # (AUTO) 0.1 K/uL (0.0-0.2); BASOPHILS % (AUTO) 1.3 % (0.0-2.0); EOSINOPHILS # (AUTO) 0.8 K/uL (0.0-0.4); HEMATOCRIT 25.1 % (36-54); HEMOGLOBIN 8.4 g/dL (14.0-18.0); LYMPHOCYTES # (AUTO) 1.6 K/uL (1.0-5.5); LYMPHOCYTES % (AUTO) 21.7 % (20.5-51.5); MEAN CORPUSCULAR HEMOGLOBIN 27 pg (27-31); MEAN CORPUSCULAR HGB CONC 33 % (32-36); MEAN CORPUSCULAR VOLUME 82 fL (79.0-98.0); MONOCYTES % (AUTO) 13.5 % (1.7-9.3); NEUTROPHILS # (AUTO) 3.8 K/uL (1.8-7.7); NEUTROPHILS % (AUTO) 52.5 % (40.0-70.0); PLATELET COUNT (AUTO) 261 K/uL (130-430); RED BLOOD CELL COUNT(AUTO) 3.07 MIL/uL (4.2-6.2); RED CELL DISTRIBUTION WIDTH 16.7 % (9.0-15.0); WHITE BLOOD COUNT (AUTO) 7.2 K/uL (4.8-10.8)
[2023-03-12 07:04] LABS: ALBUMIN 2.9 g/dL (3.4-4.8); CALCIUM 7.3 mg/dL (8.4-11.0); CREATININE 4.77 mg/dL (0.55-1.30); PHOSPHORUS 5.9 mg/dL (2.7-4.5); TOTAL BILIRUBIN 0.4 mg/dL (0.0-1.0); TOTAL PROTEIN, SERUM 6.4 g/dL (6.4-8.3)
[2023-03-12 08:00] VITALS: BP_SYST 173; PULSE 64; RESP 18; TEMP 97.5; O2SAT 99
[2023-03-12 08:16] LABS: ERYTHROCYTE SEDIMENTATION RATE 29 MM/HR (0-15)
[2023-03-12] MEDS: GABAPENTIN 400 MG CAPSULE PO SCH ×3 (08:16→22:00)
[2023-03-12] MEDS: HYDROCHLOROTHIAZIDE 25 MG TABLET (HCTZ) PO SCH (08:16)
[2023-03-12] MEDS: INSULIN GLARGINE 100 UNITS/ML, 10 ML VIAL SUBCUT SCH ×2 (08:21→22:08)
[2023-03-12] MEDS: RIVAROXABAN 10 MG TABLET PO SCH (08:21)
[2023-03-12] MEDS ORDERED: MAGNESIUM SULFATE 50 ML IV ONE (10:30)
[2023-03-12] MEDS: CIPROFLOXACIN LACT 400 MG/D5W 200 ML IV SCH ×2 (11:07→22:15)
[2023-03-12 11:57] VITALS: BP_SYST 160; PULSE 59; RESP 15; TEMP 98.5; O2SAT 100
[2023-03-12] MEDS: INSULIN LISPRO SLIDING SCALE 100 UNITS/ML, 3 ML VIAL (humaLOG) SUBCUT PRN ×2 (12:05→17:14)
[2023-03-12] MEDS: NACL 0.9% 1,000 ML IV SCH ×2 (12:16→22:15)
[2023-03-12] MEDS: cloNIDine HCL 0.2 MG TABLET PO PRN ×2 (15:02→22:24)
[2023-03-12 17:09] VITALS: BP_SYST 183; PULSE 83; RESP 15; TEMP 98.4; O2SAT 95
[2023-03-12 20:00] VITALS: BP_SYST 161; PULSE 55; RESP 16; TEMP 97.8; O2SAT 99
[2023-03-12 22:00] VITALS: O2SAT 99
[2023-03-12] MEDS: AMITRIPTYLINE HCL 10 MG TABLET (ELAVIL) PO SCH (22:00)
[2023-03-12] MEDS: DONEPEZIL HCL 5 MG TABLET (ARICEPT) PO SCH (22:00)
[2023-03-12] MEDS: ATORVASTATIN 10 MG TABLET PO SCH (22:08)
[2023-03-13 00:45] VITALS: BP_SYST 152; PULSE 63; RESP 17; TEMP 97.7; O2SAT 100
[2023-03-13] MEDS: HYDROcodone/ACETAMIN 10-325 MG TAB PO PRN ×4 (02:56→23:21)
[2023-03-13 06:53] LABS: BASOPHILS # (AUTO) 0.1 K/uL (0.0-0.2); BASOPHILS % (AUTO) 1.5 % (0.0-2.0); EOSINOPHILS # (AUTO) 0.9 K/uL (0.0-0.4); EOSINOPHILS % (AUTO) 13.3 % (0.0-4.0); HEMATOCRIT 24.6 % (36-54); HEMOGLOBIN 8.2 g/dL (14.0-18.0); LYMPHOCYTES # (AUTO) 1.6 K/uL (1.0-5.5); LYMPHOCYTES % (AUTO) 23.9 % (20.5-51.5); MEAN CORPUSCULAR HEMOGLOBIN 27 pg (27-31); MEAN CORPUSCULAR HGB CONC 33 % (32-36); MEAN CORPUSCULAR VOLUME 82 fL (79.0-98.0); MONOCYTES # (AUTO) 0.8 K/uL (0.0-1.0); MONOCYTES % (AUTO) 12.1 % (1.7-9.3); NEUTROPHILS # (AUTO) 3.3 K/uL (1.8-7.7); NEUTROPHILS % (AUTO) 49.2 % (40.0-70.0); PLATELET COUNT (AUTO) 231 K/uL (130-430); RED CELL DISTRIBUTION WIDTH 16.7 % (9.0-15.0); WHITE BLOOD COUNT (AUTO) 6.7 K/uL (4.8-10.8)
[2023-03-13] MEDS: INSULIN Lispro 100 UNITS/ML, 3 ML VIAL (humaLOG) SUBCUT SCH ×3 (06:55→18:18)
[2023-03-13] MEDS: INSULIN LISPRO SLIDING SCALE 100 UNITS/ML, 3 ML VIAL (humaLOG) SUBCUT PRN ×4 (06:57→21:09)
[2023-03-13 07:11] LABS: CALCIUM 7.3 mg/dL (8.4-11.0); CREATININE 3.88 mg/dL (0.55-1.30); PHOSPHORUS 5.6 mg/dL (2.7-4.5)
[2023-03-13 08:00] VITALS: BP_SYST 159; PULSE 55; RESP 19; TEMP 97.5; O2SAT 100
[2023-03-13] MEDS: HYDROCHLOROTHIAZIDE 25 MG TABLET (HCTZ) PO SCH (09:28)
[2023-03-13] MEDS: GABAPENTIN 400 MG CAPSULE PO SCH ×3 (09:30→21:01)
[2023-03-13] MEDS: RIVAROXABAN 10 MG TABLET PO SCH (09:44)
[2023-03-13] MEDS: INSULIN GLARGINE 100 UNITS/ML, 10 ML VIAL SUBCUT SCH ×2 (09:45→21:07)
[2023-03-13] MEDS: NACL 0.9% 1,000 ML IV SCH ×3 (09:59→23:25)
[2023-03-13] MEDS: CIPROFLOXACIN LACT 400 MG/D5W 200 ML IV SCH ×2 (11:38→23:25)
[2023-03-13 12:00] VITALS: BP_SYST 160; PULSE 57; RESP 19; TEMP 98; O2SAT 99
[2023-03-13 16:00] VITALS: BP_SYST 162; PULSE 60; RESP 19; TEMP 98.1; O2SAT 99
[2023-03-13 17:42] LABS: ERYTHROCYTE SEDIMENTATION RATE 32 MM/HR (0-15)
[2023-03-13] MEDS: AMITRIPTYLINE HCL 10 MG TABLET (ELAVIL) PO SCH (21:01)
[2023-03-13] MEDS: DONEPEZIL HCL 5 MG TABLET (ARICEPT) PO SCH (21:02)
[2023-03-13] MEDS: cloNIDine HCL 0.2 MG TABLET PO PRN (21:02)
[2023-03-13] MEDS: ATORVASTATIN 10 MG TABLET PO SCH (21:02)
[2023-03-14] VITALS: BP_SYST 155; PULSE 53; RESP 17; TEMP 98; O2SAT 98
[2023-03-14 06:09] LABS: BASOPHILS # (AUTO) 0.1 K/uL (0.0-0.2); BASOPHILS % (AUTO) 1.9 % (0.0-2.0); EOSINOPHILS # (AUTO) 1.1 K/uL (0.0-0.4); HEMATOCRIT 24.2 % (36-54); HEMOGLOBIN 7.9 g/dL (14.0-18.0); LYMPHOCYTES # (AUTO) 1.9 K/uL (1.0-5.5); LYMPHOCYTES % (AUTO) 26.2 % (20.5-51.5); MEAN CORPUSCULAR HEMOGLOBIN 27 pg (27-31); MEAN CORPUSCULAR HGB CONC 33 % (32-36); MEAN CORPUSCULAR VOLUME 82 fL (79.0-98.0); MONOCYTES # (AUTO) 0.7 K/uL (0.0-1.0); NEUTROPHILS # (AUTO) 3.4 K/uL (1.8-7.7); NEUTROPHILS % (AUTO) 46.9 % (40.0-70.0); PLATELET COUNT (AUTO) 257 K/uL (130-430); RED BLOOD CELL COUNT(AUTO) 2.96 MIL/uL (4.2-6.2); RED CELL DISTRIBUTION WIDTH 16.3 % (9.0-15.0); WHITE BLOOD COUNT (AUTO) 7.2 K/uL (4.8-10.8)
[2023-03-14] MEDS: HYDROcodone/ACETAMIN 10-325 MG TAB PO PRN ×2 (06:51→20:57)
[2023-03-14] MEDS: INSULIN Lispro 100 UNITS/ML, 3 ML VIAL (humaLOG) SUBCUT SCH ×2 (06:58→11:20)
[2023-03-14 07:18] LABS: ALBUMIN 2.8 g/dL (3.4-4.8); CALCIUM 7.4 mg/dL (8.4-11.0); CREATININE 3.61 mg/dL (0.55-1.30); POTASSIUM 3.9 mmol/L (3.5-5.1); TOTAL BILIRUBIN 0.3 mg/dL (0.0-1.0); TOTAL PROTEIN, SERUM 6.2 g/dL (6.4-8.3)
[2023-03-14 08:00] VITALS: BP_SYST 161; PULSE 67; RESP 19; TEMP 97.7; O2SAT 100; O2SAT 98
[2023-03-14] MEDS: GABAPENTIN 400 MG CAPSULE PO SCH ×3 (08:53→20:57)
[2023-03-14] MEDS: CHOLECALCIFEROL (VITAMIN D3) 2,000 UNIT TABLET PO SCH (08:54)
[2023-03-14] MEDS: HYDROCHLOROTHIAZIDE 25 MG TABLET (HCTZ) PO SCH (08:54)
[2023-03-14] MEDS: INSULIN GLARGINE 100 UNITS/ML, 10 ML VIAL SUBCUT SCH ×2 (09:07→20:44)
[2023-03-14] MEDS: RIVAROXABAN 10 MG TABLET PO SCH (09:09)
[2023-03-14] MEDS: CIPROFLOXACIN LACT 400 MG/D5W 200 ML IV SCH (11:13)
[2023-03-14] MEDS: INSULIN LISPRO SLIDING SCALE 100 UNITS/ML, 3 ML VIAL (humaLOG) SUBCUT PRN ×3 (11:23→20:40)
[2023-03-14] MEDS: NACL 0.9% 1,000 ML IV SCH (11:28)
[2023-03-14 12:00] VITALS: BP_SYST 171; PULSE 60; RESP 19; TEMP 98; O2SAT 98
[2023-03-14] MEDS ORDERED: amLODIPine BESYLATE 5 MG TABLET PO ONE (12:30)
[2023-03-14] MEDS: HYDROcodone/ACETAMIN 5-325 MG TAB (NORCO/ VICODIN) PO PRN (13:02)
[2023-03-14 16:00] VITALS: BP_SYST 177; PULSE 54; RESP 19; TEMP 98.1; O2SAT 99
[2023-03-14 20:00] VITALS: BP_SYST 165; PULSE 55; RESP 18; TEMP 98.6; O2SAT 98
[2023-03-14] MEDS: AMITRIPTYLINE HCL 10 MG TABLET (ELAVIL) PO SCH (20:55)
[2023-03-14] MEDS: ATORVASTATIN 10 MG TABLET PO SCH (20:56)
[2023-03-14] MEDS: DONEPEZIL HCL 5 MG TABLET (ARICEPT) PO SCH (20:56)
[2023-03-14] MEDS: cloNIDine HCL 0.2 MG TABLET PO PRN (20:56)
[2023-03-15] VITALS: BP_SYST 158; PULSE 58; RESP 17; TEMP 98.2; O2SAT 97
[2023-03-15] MEDS: NACL 0.9% 1,000 ML IV SCH ×3 (00:02→22:25)
[2023-03-15] MEDS: CIPROFLOXACIN LACT 400 MG/D5W 200 ML IV SCH ×3 (00:03→22:29)
[2023-03-15] MEDS: HYDROcodone/ACETAMIN 10-325 MG TAB PO PRN ×3 (02:54→15:59)
[2023-03-15] MEDS: INSULIN Lispro 100 UNITS/ML, 3 ML VIAL (humaLOG) SUBCUT SCH ×3 (06:48→17:15)
[2023-03-15 07:44] LABS: CALCIUM 7.4 mg/dL (8.4-11.0); CREATININE 3.32 mg/dL (0.55-1.30); POTASSIUM 4.5 mmol/L (3.5-5.1)
[2023-03-15 07:56] LABS: HEMATOCRIT 24.9 % (36-54); HEMOGLOBIN 8.2 g/dL (14.0-18.0); MEAN CORPUSCULAR HEMOGLOBIN 27 pg (27-31); MEAN CORPUSCULAR HGB CONC 33 % (32-36); MEAN CORPUSCULAR VOLUME 83 fL (79.0-98.0); PLATELET COUNT (AUTO) 267 K/uL (130-430); RED BLOOD CELL COUNT(AUTO) 3.01 MIL/uL (4.2-6.2); RED CELL DISTRIBUTION WIDTH 16.6 % (9.0-15.0); WHITE BLOOD COUNT (AUTO) 7.9 K/uL (4.8-10.8)
[2023-03-15 08:00] VITALS: BP_SYST 162; PULSE 55; RESP 17; TEMP 98.2; O2SAT 99
[2023-03-15 09:54] LABS: LYMPHOCYTES % (MANUAL) 21 % (20-46)
[2023-03-15 09:55] LABS: ANISOCYTOSIS 1+; BASOPHILS % (MANUAL) 0 % (0-2); EOSINOPHILS % (MANUAL) 10 % (0-7); MONOCYTES % (MANUAL) 8 % (0-11); OVALOCYTES FEW; PLATELET ESTIMATE ADEQUATE (ADEQUATE); TEAR DROP CELLS RARE
[2023-03-15] MEDS: CHOLECALCIFEROL (VITAMIN D3) 2,000 UNIT TABLET PO SCH (09:57)
[2023-03-15] MEDS: GABAPENTIN 400 MG CAPSULE PO SCH ×3 (09:57→22:25)
[2023-03-15] MEDS: HYDROCHLOROTHIAZIDE 25 MG TABLET (HCTZ) PO SCH (09:57)
[2023-03-15] MEDS: INSULIN GLARGINE 100 UNITS/ML, 10 ML VIAL SUBCUT SCH ×2 (09:59→22:28)
[2023-03-15] MEDS: RIVAROXABAN 10 MG TABLET PO SCH (10:00)
[2023-03-15] MEDS ORDERED: amLODIPine BESYLATE 5 MG TABLET PO ONE (10:00)
[2023-03-15 12:00] VITALS: BP_SYST 151; PULSE 56; RESP 16; TEMP 98.4; O2SAT 97
[2023-03-15 16:00] VITALS: BP_SYST 165; PULSE 56; RESP 16; TEMP 98.1; O2SAT 100
[2023-03-15] MEDS: INSULIN LISPRO SLIDING SCALE 100 UNITS/ML, 3 ML VIAL (humaLOG) SUBCUT PRN (17:16)
[2023-03-15 20:30] VITALS: BP_SYST 153; PULSE 62; RESP 18; TEMP 97.5; O2SAT 96
[2023-03-15] MEDS: AMITRIPTYLINE HCL 10 MG TABLET (ELAVIL) PO SCH (22:24)
[2023-03-15] MEDS: DONEPEZIL HCL 5 MG TABLET (ARICEPT) PO SCH (22:24)
[2023-03-15] MEDS: ATORVASTATIN 10 MG TABLET PO SCH (22:25)
[2023-03-16 01:00] VITALS: BP_SYST 139; PULSE 59; RESP 18; TEMP 98.4; O2SAT 96
[2023-03-16 06:09] LABS: BASOPHILS # (AUTO) 0.2 K/uL (0.0-0.2); BASOPHILS % (AUTO) 1.8 % (0.0-2.0); EOSINOPHILS # (AUTO) 1.1 K/uL (0.0-0.4); EOSINOPHILS % (AUTO) 10.1 % (0.0-4.0); ERYTHROCYTE SEDIMENTATION RATE 16 MM/HR (0-15); HEMATOCRIT 25.3 % (36-54); HEMOGLOBIN 8.5 g/dL (14.0-18.0); LYMPHOCYTES # (AUTO) 3.7 K/uL (1.0-5.5); LYMPHOCYTES % (AUTO) 34.4 % (20.5-51.5); MEAN CORPUSCULAR HEMOGLOBIN 27 pg (27-31); MEAN CORPUSCULAR HGB CONC 34 % (32-36); MEAN CORPUSCULAR VOLUME 82 fL (79.0-98.0); MONOCYTES # (AUTO) 0.9 K/uL (0.0-1.0); MONOCYTES % (AUTO) 8.4 % (1.7-9.3); NEUTROPHILS # (AUTO) 4.9 K/uL (1.8-7.7); NEUTROPHILS % (AUTO) 45.3 % (40.0-70.0); PLATELET COUNT (AUTO) 322 K/uL (130-430); RED CELL DISTRIBUTION WIDTH 16.9 % (9.0-15.0); WHITE BLOOD COUNT (AUTO) 10.8 K/uL (4.8-10.8)
[2023-03-16 06:23] LABS: CALCIUM 7.2 mg/dL (8.4-11.0); CREATININE 3.02 mg/dL (0.55-1.30); TOTAL BILIRUBIN 0.3 mg/dL (0.0-1.0); TOTAL PROTEIN, SERUM 6.6 g/dL (6.4-8.3)
[2023-03-16] MEDS: INSULIN Lispro 100 UNITS/ML, 3 ML VIAL (humaLOG) SUBCUT SCH ×3 (07:00→16:54)
[2023-03-16] MEDS: NACL 0.9% 1,000 ML IV SCH ×2 (07:46→23:48)
[2023-03-16 08:00] VITALS: BP_SYST 181; PULSE 78; RESP 17; TEMP 98.2; O2SAT 98
[2023-03-16] MEDS: HYDROCHLOROTHIAZIDE 25 MG TABLET (HCTZ) PO SCH (08:24)
[2023-03-16] MEDS: CHOLECALCIFEROL (VITAMIN D3) 2,000 UNIT TABLET PO SCH (08:24)
[2023-03-16] MEDS: GABAPENTIN 400 MG CAPSULE PO SCH ×3 (08:24→21:23)
[2023-03-16] MEDS: RIVAROXABAN 10 MG TABLET PO SCH (08:25)
[2023-03-16] MEDS: HYDROcodone/ACETAMIN 10-325 MG TAB PO PRN ×3 (08:27→21:24)
[2023-03-16] MEDS ORDERED: amLODIPine BESYLATE 5 MG TABLET PO SCH (09:00)
[2023-03-16 10:56] VITALS: O2SAT 97
[2023-03-16] MEDS: CIPROFLOXACIN LACT 400 MG/D5W 200 ML IV SCH ×2 (11:00→23:38)
[2023-03-16] MEDS: INSULIN GLARGINE 100 UNITS/ML, 10 ML VIAL SUBCUT SCH ×2 (11:10→21:38)
[2023-03-16] MEDS: cloNIDine HCL 0.2 MG TABLET PO PRN (11:45)
[2023-03-16 12:00] VITALS: BP_SYST 174; PULSE 80; RESP 18; TEMP 97.9; O2SAT 97
[2023-03-16 16:00] VITALS: BP_SYST 160; PULSE 70; RESP 17; TEMP 97.7; O2SAT 97
[2023-03-16 16:29] LABS: URINE SODIUM, RANDOM 84 mmol/L (40-220)
[2023-03-16] MEDS: INSULIN LISPRO SLIDING SCALE 100 UNITS/ML, 3 ML VIAL (humaLOG) SUBCUT PRN ×2 (16:55→21:48)
[2023-03-16 20:00] VITALS: BP_SYST 160; PULSE 61; RESP 18; TEMP 98.2; O2SAT 99
[2023-03-16] MEDS: ATORVASTATIN 10 MG TABLET PO SCH (21:22)
[2023-03-16] MEDS: DONEPEZIL HCL 5 MG TABLET (ARICEPT) PO SCH (21:22)
[2023-03-16] MEDS: AMITRIPTYLINE HCL 10 MG TABLET (ELAVIL) PO SCH (21:49)
[2023-03-17 00:48] VITALS: BP_SYST 158; PULSE 86; RESP 18; TEMP 98.4; O2SAT 99
[2023-03-17 06:08] LABS: BASOPHILS # (AUTO) 0.1 K/uL (0.0-0.2); BASOPHILS % (AUTO) 1.7 % (0.0-2.0); EOSINOPHILS # (AUTO) 0.8 K/uL (0.0-0.4); EOSINOPHILS % (AUTO) 9.1 % (0.0-4.0); LYMPHOCYTES # (AUTO) 2.1 K/uL (1.0-5.5); LYMPHOCYTES % (AUTO) 25.9 % (20.5-51.5); MEAN CORPUSCULAR HEMOGLOBIN 27 pg (27-31); MEAN CORPUSCULAR HGB CONC 34 % (32-36); MEAN CORPUSCULAR VOLUME 82 fL (79.0-98.0); MONOCYTES # (AUTO) 0.9 K/uL (0.0-1.0); NEUTROPHILS # (AUTO) 4.3 K/uL (1.8-7.7); NEUTROPHILS % (AUTO) 52.3 % (40.0-70.0); PLATELET COUNT (AUTO) 263 K/uL (130-430); RED BLOOD CELL COUNT(AUTO) 2.94 MIL/uL (4.2-6.2); RED CELL DISTRIBUTION WIDTH 16.8 % (9.0-15.0); WHITE BLOOD COUNT (AUTO) 8.3 K/uL (4.8-10.8)
[2023-03-17 06:19] LABS: ALBUMIN 2.8 g/dL (3.4-4.8); CREATININE 2.78 mg/dL (0.55-1.30); PHOSPHORUS 4.9 mg/dL (2.7-4.5); POTASSIUM 4.4 mmol/L (3.5-5.1); TOTAL BILIRUBIN 0.3 mg/dL (0.0-1.0); TOTAL PROTEIN, SERUM 5.9 g/dL (6.4-8.3)
[2023-03-17 06:21] LABS: ERYTHROCYTE SEDIMENTATION RATE 9 MM/HR (0-15)
[2023-03-17 06:39] LABS: CALCIUM 6.7 mg/dL (8.4-11.0)
[2023-03-17] MEDS: INSULIN Lispro 100 UNITS/ML, 3 ML VIAL (humaLOG) SUBCUT SCH ×3 (07:00→16:55)
[2023-03-17 08:00] VITALS: BP_SYST 160; PULSE 71; RESP 18; TEMP 98.2; O2SAT 99
[2023-03-17] MEDS: RIVAROXABAN 10 MG TABLET PO SCH (08:20)
[2023-03-17] MEDS: amLODIPine BESYLATE 5 MG TABLET PO SCH (08:21)
[2023-03-17] MEDS: GABAPENTIN 400 MG CAPSULE PO SCH ×3 (08:21→21:05)
[2023-03-17] MEDS: CHOLECALCIFEROL (VITAMIN D3) 2,000 UNIT TABLET PO SCH (08:21)
[2023-03-17] MEDS: HYDROCHLOROTHIAZIDE 25 MG TABLET (HCTZ) PO SCH (08:22)
[2023-03-17] MEDS: INSULIN GLARGINE 100 UNITS/ML, 10 ML VIAL SUBCUT SCH ×2 (08:26→21:00)
[2023-03-17] MEDS: HYDROcodone/ACETAMIN 10-325 MG TAB PO PRN ×3 (08:29→22:32)
[2023-03-17 09:08] VITALS: O2SAT 98
[2023-03-17] MEDS: INSULIN LISPRO SLIDING SCALE 100 UNITS/ML, 3 ML VIAL (humaLOG) SUBCUT PRN ×2 (10:56→16:56)
[2023-03-17 11:45] VITALS: BP_SYST 162; PULSE 78; RESP 18; TEMP 99; O2SAT 97
[2023-03-17] MEDS: ERTAPENEM SODIUM 0.5 GM in NS 50 ML IV SCH (12:31)
[2023-03-17] MEDS ORDERED: MAGNESIUM SULFATE 1 GM/2 ML VIAL IVP ONE (13:00)
[2023-03-17] MEDS ORDERED: CALCIUM GLUCONATE 2 GM in NS 80 ML IV ONE (13:00)
[2023-03-17] MEDS ORDERED: MAGNESIUM SULFATE 50 ML IV ONE (13:00)
[2023-03-17 17:30] VITALS: BP_SYST 160; PULSE 74; RESP 18; TEMP 99.2; O2SAT 98
[2023-03-17 20:00] VITALS: BP_SYST 170; PULSE 79; RESP 18; TEMP 98.4; O2SAT 98
[2023-03-17] MEDS: AMITRIPTYLINE HCL 10 MG TABLET (ELAVIL) PO SCH (21:05)
[2023-03-17] MEDS: DONEPEZIL HCL 5 MG TABLET (ARICEPT) PO SCH (21:05)
[2023-03-17] MEDS: ATORVASTATIN 10 MG TABLET PO SCH (21:06)
[2023-03-17] MEDS ORDERED: INSULIN GLARGINE 100 UNITS/ML, 10 ML VIAL SUBCUT ONE (21:45)
[2023-03-18 01:06] VITALS: BP_SYST 149; PULSE 73; RESP 18; TEMP 98.2; O2SAT 96
[2023-03-18] MEDS: HYDROcodone/ACETAMIN 10-325 MG TAB PO PRN (04:10)
[2023-03-18 06:36] LABS: ERYTHROCYTE SEDIMENTATION RATE 9 MM/HR (0-15)
[2023-03-18 06:39] LABS: BASOPHILS # (AUTO) 0.2 K/uL (0.0-0.2); BASOPHILS % (AUTO) 1.8 % (0.0-2.0); EOSINOPHILS # (AUTO) 0.8 K/uL (0.0-0.4); EOSINOPHILS % (AUTO) 7.8 % (0.0-4.0); HEMATOCRIT 24.1 % (36-54); HEMOGLOBIN 8.1 g/dL (14.0-18.0); LYMPHOCYTES # (AUTO) 2.7 K/uL (1.0-5.5); LYMPHOCYTES % (AUTO) 27.8 % (20.5-51.5); MEAN CORPUSCULAR HEMOGLOBIN 28 pg (27-31); MEAN CORPUSCULAR HGB CONC 34 % (32-36); MEAN CORPUSCULAR VOLUME 82 fL (79.0-98.0); MONOCYTES # (AUTO) 0.9 K/uL (0.0-1.0); MONOCYTES % (AUTO) 8.9 % (1.7-9.3); NEUTROPHILS # (AUTO) 5.2 K/uL (1.8-7.7); NEUTROPHILS % (AUTO) 53.7 % (40.0-70.0); PLATELET COUNT (AUTO) 309 K/uL (130-430); RED BLOOD CELL COUNT(AUTO) 2.94 MIL/uL (4.2-6.2); RED CELL DISTRIBUTION WIDTH 16.9 % (9.0-15.0); WHITE BLOOD COUNT (AUTO) 9.6 K/uL (4.8-10.8)
[2023-03-18 07:24] LABS: CALCIUM 7.4 mg/dL (8.4-11.0); CREATININE 2.75 mg/dL (0.55-1.30); POTASSIUM 4.3 mmol/L (3.5-5.1)
[2023-03-18 07:50] VITALS: BP_SYST 183; PULSE 86; RESP 18; TEMP 98.4; O2SAT 97
[2023-03-18 08:00] VITALS: O2SAT 97
[2023-03-18] MEDS: amLODIPine BESYLATE 5 MG TABLET PO SCH (08:41)
[2023-03-18] MEDS: GABAPENTIN 400 MG CAPSULE PO SCH ×2 (08:42→16:14)
[2023-03-18] MEDS: HYDROCHLOROTHIAZIDE 25 MG TABLET (HCTZ) PO SCH (08:42)
[2023-03-18] MEDS: CHOLECALCIFEROL (VITAMIN D3) 2,000 UNIT TABLET PO SCH (08:42)
[2023-03-18] MEDS: RIVAROXABAN 10 MG TABLET PO SCH (08:44)
[2023-03-18] MEDS: INSULIN Lispro 100 UNITS/ML, 3 ML VIAL (humaLOG) SUBCUT SCH ×3 (08:47→17:51)
[2023-03-18] MEDS: INSULIN GLARGINE 100 UNITS/ML, 10 ML VIAL SUBCUT SCH (08:52)
[2023-03-18] MEDS: ERTAPENEM SODIUM 0.5 GM in NS 50 ML IV SCH (10:54)
[2023-03-18] MEDS: INSULIN LISPRO SLIDING SCALE 100 UNITS/ML, 3 ML VIAL (humaLOG) SUBCUT PRN (11:05)
[2023-03-18 11:30] VITALS: BP_SYST 158; PULSE 82; RESP 17; TEMP 98.2; O2SAT 95
[2023-03-18] MEDS: ACETAMINOPHEN 325 MG TABLET PO PRN ×2 (11:48→16:15)
[2023-03-18 16:48] VITALS: BP_SYST 156; PULSE 92; RESP 19; TEMP 99; O2SAT 96
[2023-03-18] MEDS ORDERED: VITD2000 PO (17:32)
[2023-03-18] MEDS ORDERED: ERTA1VIA3 INJ (17:32)
[2023-03-18] MEDS ORDERED: INSU100V SUBCUT ×2 (17:32)
[2023-03-18] MEDS ORDERED: INSU100V9 SUBCUT ×2 (17:32)
[2023-03-18] MEDS ORDERED: HCT25 PO (17:32)
[2023-03-18 18:54] VITALS: BP_SYST 154; PULSE 82; RESP 18; TEMP 98.6; O2SAT 97
== END 2023-03-18 21:22 | disposition home health service (06) | DRG 682 ==
LOC: SED 15:10 → SIC 18:08 → SMU 03-10 17:00
PROVIDERS: ADMIT Preventive Medicine Preventive Medicine/Occupational Environmental Medicine; ATTEND Preventive Medicine Preventive Medicine/Occupational Environmental Medicine
PROC: 02HV33Z Insertion of Infusion Device into Superior Vena Cava, Percutaneous Approach (ICD-10-PCS; principal; 2023-03-09)
PROC: B548ZZA Ultrasonography of Superior Vena Cava, Guidance (ICD-10-PCS; 2023-03-09)
PROC: 4A00X4Z Measurement of Central Nervous Electrical Activity, External Approach (ICD-10-PCS; 2023-03-09)
DX: N17.0 Acute kidney failure with tubular necrosis (principal); E10.10 Type 1 diabetes mellitus with ketoacidosis without coma; E43 Unspecified severe protein-calorie malnutrition; G93.41 Metabolic encephalopathy; J96.01 Acute respiratory failure with hypoxia; R65.11 Systemic inflammatory response syndrome (SIRS) of non-infectious origin with acute organ dysfunction; M86.671 Other chronic osteomyelitis, right ankle and foot; I12.0 Hypertensive chronic kidney disease with stage 5 chronic kidney disease or end stage renal disease; N18.5 Chronic kidney disease, stage 5; L97.519 Non-pressure chronic ulcer of other part of right foot with unspecified severity; E78.00 Pure hypercholesterolemia, unspecified; E83.39 Other disorders of phosphorus metabolism; E83.42 Hypomagnesemia; Z96.41 Presence of insulin pump (external) (internal); E10.621 Type 1 diabetes mellitus with foot ulcer; I25.10 Atherosclerotic heart disease of native coronary artery without angina pectoris; E10.42 Type 1 diabetes mellitus with diabetic polyneuropathy; E10.22 Type 1 diabetes mellitus with diabetic chronic kidney disease; E10.319 Type 1 diabetes mellitus with unspecified diabetic retinopathy without macular edema; D64.9 Anemia, unspecified; E83.51 Hypocalcemia; E87.5 Hyperkalemia; E88.09 Other disorders of plasma-protein metabolism, not elsewhere classified; E10.69 Type 1 diabetes mellitus with other specified complication; J44.9 Chronic obstructive pulmonary disease, unspecified; Z88.1 Allergy status to other antibiotic agents; Z88.8 Allergy status to other drugs, medicaments and biological substances; Z79.899 Other long term (current) drug therapy; Z79.01 Long term (current) use of anticoagulants; Z79.4 Long term (current) use of insulin; Z68.27 Body mass index [BMI] 27.0-27.9, adult
CPT/HCPCS: 36415; 70450-TC; 71045; 76376; 76770; 80048; 80053; 81000; 82009; 82272; 82306; 82550; 82570; 82607; 82803; 82962; 83037; 83605; 83735; 84100; 84302; 84443; 84484; 85007; 85025; 85027; 85610-TC; 85651-TC; 85730-TC; 87040; 87070-TC; 87081; 87086; 93005; 95816; 97110-GP; 97116-GP; 97530-GP; 99291; J0610; J0744; J1335; J1815; J3475; J3490

== ENCOUNTER 2023-03-19 20:31 | Inpatient (IN) | payer OTHER ==
[~2023-03-19] VITALS: Ht 182.9 cm; Wt 99.8 kg
[~2023-03-19 20:31] MED LIST changes: -BENA1TAB19 PO; +CARV25TA55 PO; +ERTA1VIA3 INJ; +FER300L PO; +HCT25 PO; +INSU100V SUBCUT; +INSU100V9 SUBCUT; +NOR10 PO; +VITD2000 PO
[2023-03-19 21:07] VITALS: BP_SYST 176; PULSE 83; RESP 14; TEMP 99; O2SAT 96
[2023-03-19 22:06] LABS: BASOPHILS # (AUTO) 0.1 K/uL (0.0-0.2); BASOPHILS % (AUTO) 1.2 % (0.0-2.0); EOSINOPHILS # (AUTO) 0.2 K/uL (0.0-0.4); HEMATOCRIT 24.3 % (36-54); HEMOGLOBIN 8.2 g/dL (14.0-18.0); LYMPHOCYTES # (AUTO) 1.8 K/uL (1.0-5.5); MEAN CORPUSCULAR HEMOGLOBIN 28 pg (27-31); MEAN CORPUSCULAR HGB CONC 34 % (32-36); MEAN CORPUSCULAR VOLUME 81 fL (79.0-98.0); MONOCYTES # (AUTO) 1.3 K/uL (0.0-1.0); MONOCYTES % (AUTO) 12.3 % (1.7-9.3); NEUTROPHILS # (AUTO) 7.1 K/uL (1.8-7.7); NEUTROPHILS % (AUTO) 67.5 % (40.0-70.0); PLATELET COUNT (AUTO) 304 K/uL (130-430); WHITE BLOOD COUNT (AUTO) 10.5 K/uL (4.8-10.8)
[2023-03-19 22:21] LABS: ANION GAP 10 (5-15); CALCIUM 7.8 mg/dL (8.4-11.0); CARBON DIOXIDE 25 mmol/L (23-29); CHLORIDE 105 mmol/L (98-107); CREATININE 2.53 mg/dL (0.55-1.30); GFR AFRICAN AMERICAN 33 mL/min (>90); GLUCOSE 89 mg/dL (74-106); POTASSIUM 4.6 mmol/L (3.5-5.1); SODIUM SERUM 140 mmol/L (136-145); UREA NITROGEN, BLOOD 54 mg/dL (8-21)
[2023-03-19 22:22] LABS: GFR NON AFRICAN-AMERICAN 27 mL/min (>90)
[2023-03-19 22:41] LABS: ALANINE AMINOTRANSFERASE 24 U/L (12-78); ALBUMIN 3.4 g/dL (3.4-4.8); ASPARTATE AMINOTRANSFERASE 25 U/L (10-37); LIPASE 46 U/L (73-393); TOTAL BILIRUBIN 0.5 mg/dL (0.0-1.0); TOTAL PROTEIN, SERUM 7.4 g/dL (6.4-8.3)
[2023-03-19 23:13] LABS: BILIRUBIN,URINE NEGATIVE (NEGATIVE); CLARITY/URINE SL CLOUDY (CLEAR); COLOR,URINE YELLOW (YELLOW); GLUCOSE,URINE NEGATIVE (NEGATIVE); KETONES,URINE NEGATIVE (NEGATIVE); LEUKOCYTE ESTERASE ,URINE NEGATIVE (NEGATIVE); NITRITE, URINE NEGATIVE (NEGATIVE); PH,URINE 5.5 (5.0-8.0); PROTEIN URINE 3+ (NEGATIVE); UROBILINOGEN,URINE 0.2 (0.2-1.0)
[2023-03-19 23:20] LABS: ABG O2 SAT% ESTIMATE 94.2 % (94.0-100.0); BLOOD GAS BASE EXCESS -3.3 mmol/L (-3.0-3.0); BLOOD GAS PCO2 35.9 mmHg (32.0-45.0); BLOOD GAS PH 7.386 (7.350-7.450); BLOOD GAS PO2 70.8 mmHg (75.0-100.0)
[2023-03-19 23:29] LABS: BLOOD, URINE TRACE (NEGATIVE)
[2023-03-19 23:51] LABS: BACTERIA,URINE FEW /HPF (None Seen)
[2023-03-20] MEDS ORDERED: ERTA1VIA3 INJ (00:29)
[2023-03-20] MEDS ORDERED: SSNOVOLOG SUBCUT (00:29)
[2023-03-20] MEDS ORDERED: HYDR25TA4 PO (00:29)
[2023-03-20] MEDS ORDERED: RIVA10TA PO (00:29)
[2023-03-20] MEDS ORDERED: DEXTROSE 50% JECT 50 ML DISP.SYRIN IVP ONE (01:30)
[2023-03-20] MEDS ORDERED: ONDANSETRON HCL 4 MG/2 ML VIAL IVP PRN (05:15)
[2023-03-20] MEDS ORDERED: LORazepam 2 MG/ML VIAL IVP PRN (05:15)
[2023-03-20] MEDS ORDERED: ACETAMINOPHEN 325 MG TABLET PO PRN ×2 (05:15→08:15)
[2023-03-20] MEDS ORDERED: NALOXONE HCL 0.4 MG/ML AMP (NARCAN) IVP PRN ×2 (05:15)
[2023-03-20] MEDS: NORMAL SALINE 5 ML DISP.SYRIN IVF SCH ×3 (06:00→22:46)
[2023-03-20] MEDS: INSULIN Lispro 100 UNITS/ML, 3 ML VIAL (humaLOG) SUBCUT SCH ×3 (07:00→17:00)
[2023-03-20] MEDS ORDERED: FERR-69 PO (08:17)
[2023-03-20] MEDS: INSULIN GLARGINE 100 UNITS/ML, 10 ML VIAL SUBCUT SCH ×2 (09:00→22:45)
[2023-03-20] MEDS: HYDROcodone/ACETAMIN 10-325 MG TAB PO PRN ×3 (09:02→22:52)
[2023-03-20] MEDS: HYDROCHLOROTHIAZIDE 25 MG TABLET (HCTZ) PO SCH (09:03)
[2023-03-20] MEDS: CARVEDILOL 25 MG TABLET (COREG) PO SCH ×2 (09:04→22:45)
[2023-03-20] MEDS: FERROUS SULFATE 300 MG/5 ML UDC PO SCH (09:06)
[2023-03-20] MEDS: CHOLECALCIFEROL (VITAMIN D3) 2,000 UNIT TABLET PO SCH (09:06)
[2023-03-20] MEDS: amLODIPine BESYLATE 10 MG TABLET PO SCH (09:07)
[2023-03-20] MEDS: RIVAROXABAN 10 MG TABLET PO SCH (09:08)
[2023-03-20] MEDS ORDERED: HYDROcodone/ACETAMIN 10-325 MG TAB ONE (13:30)
[2023-03-20] MEDS ORDERED: HYDROcodone/ACETAMIN 5-325 MG TAB (NORCO/ VICODIN) ONE (17:55)
[2023-03-20] MEDS: HYDROcodone/ACETAMIN 5-325 MG TAB (NORCO/ VICODIN) PO PRN (17:56)
[2023-03-20] MEDS: AMITRIPTYLINE HCL 10 MG TABLET (ELAVIL) PO SCH (22:44)
[2023-03-20] MEDS: GABAPENTIN 400 MG CAPSULE PO SCH (22:44)
[2023-03-20] MEDS: ATORVASTATIN 10 MG TABLET PO SCH (22:44)
[2023-03-20] MEDS: DONEPEZIL HCL 5 MG TABLET (ARICEPT) PO SCH (22:45)
[2023-03-20 22:50] VITALS: O2SAT 96
[2023-03-20 22:57] VITALS: BP_SYST 146; PULSE 73; RESP 18; TEMP 98.8
[2023-03-21 01:04] VITALS: BP_SYST 144; PULSE 81; RESP 15; TEMP 98.6; O2SAT 93
[2023-03-21 06:22] LABS: BASOPHILS # (AUTO) 0.2 K/uL (0.0-0.2); BASOPHILS % (AUTO) 1.7 % (0.0-2.0); EOSINOPHILS # (AUTO) 0.7 K/uL (0.0-0.4); EOSINOPHILS % (AUTO) 6.8 % (0.0-4.0); HEMATOCRIT 22.4 % (36-54); HEMOGLOBIN 7.5 g/dL (14.0-18.0); LYMPHOCYTES # (AUTO) 2.9 K/uL (1.0-5.5); LYMPHOCYTES % (AUTO) 27.3 % (20.5-51.5); MEAN CORPUSCULAR HEMOGLOBIN 27 pg (27-31); MEAN CORPUSCULAR HGB CONC 34 % (32-36); MEAN CORPUSCULAR VOLUME 81 fL (79.0-98.0); MONOCYTES # (AUTO) 1.4 K/uL (0.0-1.0); MONOCYTES % (AUTO) 13.2 % (1.7-9.3); NEUTROPHILS # (AUTO) 5.4 K/uL (1.8-7.7); PLATELET COUNT (AUTO) 285 K/uL (130-430); RED BLOOD CELL COUNT(AUTO) 2.76 MIL/uL (4.2-6.2); RED CELL DISTRIBUTION WIDTH 16.7 % (9.0-15.0); WHITE BLOOD COUNT (AUTO) 10.5 K/uL (4.8-10.8)
[2023-03-21] MEDS: INSULIN Lispro 100 UNITS/ML, 3 ML VIAL (humaLOG) SUBCUT SCH ×3 (06:35→17:34)
[2023-03-21] MEDS: NORMAL SALINE 5 ML DISP.SYRIN IVF SCH ×3 (06:35→22:57)
[2023-03-21] MEDS ORDERED: GLUCOSE (DEXTROSE) ORAL GEL -Adults PO PRN (06:45)
[2023-03-21] MEDS ORDERED: DEXTROSE 50% JECT 50 ML DISP.SYRIN IVP PRN (06:45)
[2023-03-21] MEDS ORDERED: D5W 1,000 ML IV PRN (06:45)
[2023-03-21 06:53] LABS: CALCIUM 7.4 mg/dL (8.4-11.0); CREATININE 2.4 mg/dL (0.55-1.30); POTASSIUM 4.9 mmol/L (3.5-5.1)
[2023-03-21 08:10] VITALS: BP_SYST 160; PULSE 77; RESP 16; TEMP 98; O2SAT 97
[2023-03-21] MEDS: ERTAPENEM SODIUM 1 GM in NS 50 ML IV SCH (09:30)
[2023-03-21] MEDS: RIVAROXABAN 10 MG TABLET PO SCH (09:31)
[2023-03-21] MEDS: HYDROCHLOROTHIAZIDE 25 MG TABLET (HCTZ) PO SCH (09:32)
[2023-03-21] MEDS: FERROUS SULFATE 300 MG/5 ML UDC PO SCH (09:32)
[2023-03-21] MEDS: CARVEDILOL 25 MG TABLET (COREG) PO SCH ×2 (09:33→22:55)
[2023-03-21] MEDS: HYDROcodone/ACETAMIN 5-325 MG TAB (NORCO/ VICODIN) PO PRN ×2 (09:33→14:14)
[2023-03-21] MEDS: amLODIPine BESYLATE 10 MG TABLET PO SCH (09:33)
[2023-03-21] MEDS: CHOLECALCIFEROL (VITAMIN D3) 2,000 UNIT TABLET PO SCH (09:39)
[2023-03-21] MEDS: INSULIN GLARGINE 100 UNITS/ML, 10 ML VIAL SUBCUT SCH ×2 (09:40→21:00)
[2023-03-21 12:52] VITALS: BP_SYST 154; PULSE 79; RESP 15; TEMP 98.2; O2SAT 98
[2023-03-21] MEDS ORDERED: CALCIUM GLUC 2 GM/100ML-NACL 100 ML IV ONE (13:00)
[2023-03-21 16:32] VITALS: BP_SYST 146; PULSE 89; RESP 16; TEMP 97.8; O2SAT 97
[2023-03-21] MEDS: INSULIN REGULAR, HUMAN 100 UNITS/ML, 3 ML VIAL (humuLIN R) SUBCUT PRN (17:32)
[2023-03-21 20:37] VITALS: BP_SYST 166; PULSE 72; RESP 18; TEMP 98.2; O2SAT 94
[2023-03-21] MEDS: DONEPEZIL HCL 5 MG TABLET (ARICEPT) PO SCH (22:55)
[2023-03-21] MEDS: ATORVASTATIN 10 MG TABLET PO SCH (22:55)
[2023-03-21] MEDS: AMITRIPTYLINE HCL 10 MG TABLET (ELAVIL) PO SCH (22:55)
[2023-03-21] MEDS: HYDROcodone/ACETAMIN 10-325 MG TAB PO PRN (22:56)
[2023-03-21] MEDS: GABAPENTIN 400 MG CAPSULE PO SCH (22:56)
[2023-03-22 00:51] VITALS: BP_SYST 161; PULSE 83; RESP 18; TEMP 98.4; O2SAT 96
[2023-03-22 05:45] LABS: ERYTHROCYTE SEDIMENTATION RATE 22 MM/HR (0-15)
[2023-03-22 06:02] LABS: BASOPHILS # (AUTO) 0.1 K/uL (0.0-0.2); BASOPHILS % (AUTO) 1.7 % (0.0-2.0); EOSINOPHILS # (AUTO) 0.8 K/uL (0.0-0.4); HEMATOCRIT 22.5 % (36-54); HEMOGLOBIN 7.5 g/dL (14.0-18.0); LYMPHOCYTES # (AUTO) 2.1 K/uL (1.0-5.5); LYMPHOCYTES % (AUTO) 24.7 % (20.5-51.5); MEAN CORPUSCULAR HEMOGLOBIN 27 pg (27-31); MEAN CORPUSCULAR HGB CONC 33 % (32-36); MEAN CORPUSCULAR VOLUME 82 fL (79.0-98.0); MONOCYTES # (AUTO) 0.8 K/uL (0.0-1.0); MONOCYTES % (AUTO) 9.4 % (1.7-9.3); NEUTROPHILS # (AUTO) 4.6 K/uL (1.8-7.7); NEUTROPHILS % (AUTO) 55.2 % (40.0-70.0); PLATELET COUNT (AUTO) 252 K/uL (130-430); RED BLOOD CELL COUNT(AUTO) 2.76 MIL/uL (4.2-6.2); RED CELL DISTRIBUTION WIDTH 16.7 % (9.0-15.0); WHITE BLOOD COUNT (AUTO) 8.3 K/uL (4.8-10.8)
[2023-03-22 06:14] LABS: ALBUMIN 2.6 g/dL (3.4-4.8); CALCIUM 7.5 mg/dL (8.4-11.0); CREATININE 2.27 mg/dL (0.55-1.30); POTASSIUM 5.3 mmol/L (3.5-5.1); TOTAL BILIRUBIN 0.4 mg/dL (0.0-1.0)
[2023-03-22] MEDS: NORMAL SALINE 5 ML DISP.SYRIN IVF SCH ×3 (06:43→21:18)
[2023-03-22] MEDS: INSULIN Lispro 100 UNITS/ML, 3 ML VIAL (humaLOG) SUBCUT SCH ×3 (06:49→18:47)
[2023-03-22 07:30] VITALS: PULSE 90; RESP 18; TEMP 98.4; O2SAT 94
[2023-03-22] MEDS: FERROUS SULFATE 300 MG/5 ML UDC PO SCH (08:27)
[2023-03-22] MEDS: CHOLECALCIFEROL (VITAMIN D3) 2,000 UNIT TABLET PO SCH (08:29)
[2023-03-22] MEDS: HYDROCHLOROTHIAZIDE 25 MG TABLET (HCTZ) PO SCH (08:29)
[2023-03-22] MEDS: amLODIPine BESYLATE 10 MG TABLET PO SCH (08:30)
[2023-03-22] MEDS: CARVEDILOL 25 MG TABLET (COREG) PO SCH ×2 (08:30→21:01)
[2023-03-22] MEDS: ERTAPENEM SODIUM 1 GM in NS 50 ML IV SCH (08:32)
[2023-03-22] MEDS: RIVAROXABAN 10 MG TABLET PO SCH (08:33)
[2023-03-22] MEDS: HYDROcodone/ACETAMIN 10-325 MG TAB PO PRN ×2 (08:54→16:52)
[2023-03-22] MEDS: INSULIN GLARGINE 100 UNITS/ML, 10 ML VIAL SUBCUT SCH ×2 (08:56→21:12)
[2023-03-22 11:30] VITALS: BP_SYST 150; PULSE 70; RESP 17; TEMP 98.6; O2SAT 94
[2023-03-22 17:30] VITALS: BP_SYST 155; PULSE 73; RESP 18; TEMP 98.3; O2SAT 95
[2023-03-22 20:00] VITALS: BP_SYST 166; PULSE 74; RESP 18; TEMP 97.7; O2SAT 95
[2023-03-22] MEDS: AMITRIPTYLINE HCL 10 MG TABLET (ELAVIL) PO SCH (21:00)
[2023-03-22] MEDS: GABAPENTIN 400 MG CAPSULE PO SCH (21:01)
[2023-03-22] MEDS: ATORVASTATIN 10 MG TABLET PO SCH (21:01)
[2023-03-22] MEDS: DONEPEZIL HCL 5 MG TABLET (ARICEPT) PO SCH (21:01)
[2023-03-22] MEDS: INSULIN REGULAR, HUMAN 100 UNITS/ML, 3 ML VIAL (humuLIN R) SUBCUT PRN (21:13)
[2023-03-23] VITALS: BP_SYST 157; PULSE 97; RESP 20; TEMP 97; O2SAT 97
[2023-03-23] MEDS: NORMAL SALINE 5 ML DISP.SYRIN IVF SCH ×2 (06:23→13:50)
[2023-03-23] MEDS: INSULIN Lispro 100 UNITS/ML, 3 ML VIAL (humaLOG) SUBCUT SCH ×2 (07:00→12:06)
[2023-03-23] MEDS ORDERED: INSULIN Lispro 100 UNITS/ML, 3 ML VIAL (humaLOG) SUBCUT ONE (07:45)
[2023-03-23 08:00] VITALS: BP_SYST 186; PULSE 77; RESP 16; TEMP 98.8; O2SAT 95
[2023-03-23] MEDS: HYDROcodone/ACETAMIN 10-325 MG TAB PO PRN ×3 (09:21→16:28)
[2023-03-23] MEDS: CARVEDILOL 25 MG TABLET (COREG) PO SCH (09:22)
[2023-03-23] MEDS: CHOLECALCIFEROL (VITAMIN D3) 2,000 UNIT TABLET PO SCH (09:22)
[2023-03-23] MEDS: FERROUS SULFATE 300 MG/5 ML UDC PO SCH (09:23)
[2023-03-23] MEDS: HYDROCHLOROTHIAZIDE 25 MG TABLET (HCTZ) PO SCH (09:23)
[2023-03-23] MEDS: amLODIPine BESYLATE 10 MG TABLET PO SCH (09:23)
[2023-03-23] MEDS: RIVAROXABAN 10 MG TABLET PO SCH (09:25)
[2023-03-23] MEDS: ERTAPENEM SODIUM 1 GM in NS 50 ML IV SCH (09:32)
[2023-03-23] MEDS: INSULIN GLARGINE 100 UNITS/ML, 10 ML VIAL SUBCUT SCH (10:52)
[2023-03-23 12:40] VITALS: BP_SYST 155; PULSE 79; RESP 16; TEMP 98.7; O2SAT 96
[2023-03-23 15:45] VITALS: BP_SYST 175; PULSE 71; RESP 18; TEMP 98.9; O2SAT 95
[2023-03-23] MEDS ORDERED: INSULIN Lispro 100 UNITS/ML, 3 ML VIAL (humaLOG) SUBCUT SCH (17:00)
[2023-03-23 18:34] VITALS: BP_SYST 155; PULSE 71; RESP 18; TEMP 98.9; O2SAT 95
[2023-03-23] MEDS ORDERED: hydrALAZINE HCL 25 MG TABLET PO ONE (18:45)
[2023-03-23] MEDS ORDERED: INSULIN GLARGINE 100 UNITS/ML, 10 ML VIAL SUBCUT SCH (21:00)
[2023-03-23] MEDS ORDERED: hydrALAZINE HCL 25 MG TABLET PO SCH (22:00)
== END 2023-03-23 19:50 | disposition home health service (06) | DRG 637 ==
LOC: SED 20:31 → STU 03-20 00:02
PROVIDERS: ADMIT Preventive Medicine Preventive Medicine/Occupational Environmental Medicine; ATTEND Specialist
DX: E10.649 Type 1 diabetes mellitus with hypoglycemia without coma (principal); G93.41 Metabolic encephalopathy; M86.8X7 Other osteomyelitis, ankle and foot; E44.1 Mild protein-calorie malnutrition; N17.9 Acute kidney failure, unspecified; E86.0 Dehydration; I25.10 Atherosclerotic heart disease of native coronary artery without angina pectoris; E10.621 Type 1 diabetes mellitus with foot ulcer; E78.5 Hyperlipidemia, unspecified; E83.39 Other disorders of phosphorus metabolism; E83.51 Hypocalcemia; E87.5 Hyperkalemia; D64.9 Anemia, unspecified; I48.91 Unspecified atrial fibrillation; I12.9 Hypertensive chronic kidney disease with stage 1 through stage 4 chronic kidney disease, or unspecified chronic kidney disease; Z96.41 Presence of insulin pump (external) (internal); J44.9 Chronic obstructive pulmonary disease, unspecified; F03.90 Unspecified dementia, unspecified severity, without behavioral disturbance, psychotic disturbance, mood disturbance, and anxiety; E10.22 Type 1 diabetes mellitus with diabetic chronic kidney disease; E10.69 Type 1 diabetes mellitus with other specified complication; N18.30 Chronic kidney disease, stage 3 unspecified; Z79.4 Long term (current) use of insulin; Z89.429 Acquired absence of other toe(s), unspecified side; Z88.1 Allergy status to other antibiotic agents; Z88.8 Allergy status to other drugs, medicaments and biological substances; Z79.899 Other long term (current) drug therapy; Z68.29 Body mass index [BMI] 29.0-29.9, adult
CPT/HCPCS: 36415; 36600; 71045; 80048; 80053; 81000; 82803; 82962; 83605; 83690; 83735; 84100; 84484; 85025; 85651-TC; 87040; 87081; 87086; 93005; 93306; 96374; 97116-GP; 97530-GP; 99285; G0378; J1335; J1815

== ENCOUNTER 2023-05-25 09:14 | Day surgery (SDC) | payer OTHER ==
[~2023-05-25 09:14] MED LIST changes: -FER300L PO; +FERR-69 PO; -GABA800T PO; +HYDR25TA4 PO; -INSU100V SUBCUT; -INSU100V9 SUBCUT; +RIVA10TA PO
[2023-05-25] MEDS ORDERED: PROPOFOL 200MG/ 20ML VIAL (DIPRIVAN) IV ONE (11:56)
[2023-05-25] MEDS ORDERED: BUPIVACAINE /PF 0.25% 30 ML VIAL INJ ONE (11:56)
[2023-05-25] MEDS ORDERED: NS IRRIG SOLN 1000 ML IR ONE (11:56)
[2023-05-25] MEDS ORDERED: LIDOCAINE 1% 10 MG/ML, 50 ML MDV ONE (11:56)
[2023-05-25] MEDS ORDERED: WATER FOR IRRIGATION,STERILE 1,000 ML IRRIG.SOLN IR ONE (11:56)
[2023-05-25] MEDS ORDERED: ACETAMINOPHEN 500 MG TABLET PO ONE (12:30)
[2023-05-25] MEDS ORDERED: METOCLOPRAMIDE HCL 10 MG/2 ML VIAL IVP PRN (12:30)
[2023-05-25] MEDS ORDERED: ONDANSETRON HCL 4 MG/2 ML VIAL IVP PRN (12:30)
[2023-05-25] MEDS ORDERED: HYDROmorphone 1 MG/ML INJ. CARTRIDGE ONE (13:04)
[2023-05-25] MEDS: HYDROmorphone 1 MG/ML INJ. CARTRIDGE IVP PRN ×2 (13:05→13:10)
[2023-05-25 16:56] VITALS: BP_SYST 172; PULSE 81; RESP 18
== END 2023-05-25 14:58 | disposition home or self-care (01) ==
LOC: SDS 09:14 → SMU 09:15 → SDS 14:58
PROVIDERS: ATTEND Podiatrist Primary Podiatric Medicine
DX: M86.171 Other acute osteomyelitis, right ankle and foot (principal); M86.671 Other chronic osteomyelitis, right ankle and foot; E11.621 Type 2 diabetes mellitus with foot ulcer; L89.893 Pressure ulcer of other site, stage 3; S91.301A Unspecified open wound, right foot, initial encounter; I12.9 Hypertensive chronic kidney disease with stage 1 through stage 4 chronic kidney disease, or unspecified chronic kidney disease; N18.30 Chronic kidney disease, stage 3 unspecified; E11.40 Type 2 diabetes mellitus with diabetic neuropathy, unspecified; M19.90 Unspecified osteoarthritis, unspecified site; Z79.899 Other long term (current) drug therapy; X58.XXXA Exposure to other specified factors, initial encounter; Y93.89 Activity, other specified; Y92.89 Other specified places as the place of occurrence of the external cause; Y99.8 Other external cause status
CPT/HCPCS: 87081; 28112; 11042; 82962; 88305; 88311; J3490; J2001; J2704; J1170